=== PATIENT | female | born 1995 | race Caucasian/White ===

== ENCOUNTER → 2019-11-01 | Outpatient (CLI) | payer OTHER ==
[2019-11-01 14:25] LABS: Albumin 4.3 g/dL (3.5-5.0); Bilirubin,Unconjugated 0.7 mg/dL (0.0-1.1); Total Bilirubin 0.7 mg/dL (0.2-1.3); Total Protein 7.6 g/dL (6.3-8.2)
[2019-11-01 14:41] LABS: T4, Free (Free Thyroxine) 1.03 ng/dL (0.78-2.19)
--- NOTE | 2019-11-02 06:43 | MR ---
EXAMINATION TYPE: MR brain wo con DATE OF EXAM: 11/01/2019 COMPARISON: CT brain April 25, 1919. HISTORY: Migraines TECHNIQUE: Multiplanar, multisequence imaging of the brain and brainstem is performed without IV cont rast. FINDINGS: Diffusion weighted images demonstrate no evidence of a recent infarct or other diffusion abnormality. There is mild prominence of CSF over the bilateral frontal and temporal lobes. The ventricular syste m and cisternal spaces are otherwise normal in size and appearance. The brain volume is age appropri ate. There is increased T2 hyperintense signal involving the right cerebellar hemisphere greater than the periphery without significant sulcal effacement. On coronal images right cerebellar hemisphere s hows diminished size to opposite left side. Midline structures demonstrate normal morphology. The craniocervical junction appears within normal limits. Artifact distortion at level of the globes is present. Paranasal sinuses are grossly clear. T here is small caliber vertebral basilar system and anterior circulation felt present. IMPRESSION: Abnormal study. Mild bilateral frontal and temporal lobe atrophy with asymmetric atrophy and T2 hyperintense signal throughout the right cerebellar hemisphere. Small caliber anterior and pos terior circulation noted. Advise neurology referral. Consider contrast-enhanced MRI to further evalua te.
== END | disposition home or self-care (01) ==
LOC: RADMRIMAIN 13:26
PROVIDERS: ATTEND Internal Medicine
DX: G31.89 Other specified degenerative diseases of nervous system (principal); R93.0 Abnormal findings on diagnostic imaging of skull and head, not elsewhere classified; R51 Headache; E66.9 Obesity, unspecified; E78.5 Hyperlipidemia, unspecified; R53.83 Other fatigue
CPT/HCPCS: 70551; 80061; 80076; 82306; 82607; 84402; 84439; 84443; 84481; 87177; 87209

== ENCOUNTER → 2021-01-13 | Outpatient (CLI) | payer OTHER ==
[2021-01-13 14:53] VITALS: BP 134/92; PULSE 114; RESP 18; TEMP 99.4; BMI 41.9
--- NOTE | 2021-02-11 10:15 | P.HPBAR ---
Bariatric H&P - History & Physicial H&P Date: 01/13/21 History & Physicial: Visit/CC: initial visit Patient initial contact: Initial weight: Initial weight in pounds: Height: 5 ft 2.5 in Initial BMI: Last weight: Current weight: 105.687 kg Current weight in pounds: 233.00 Current BMI: 41.9 [place] body weight (based on NIH guidelines): 51.029 kg Excess body weight loss: The patient is a 26 year-old F who presents for Bariatric Assessment. Patient resents today for presurgical consultation. She is interested sleeve gastric. Her BMI is 42. Past Medical History Past Medical History: CVA/TIA Additional Past Medical History / Comment(s): "mini stroke at age 4 due to fever". chronic migraines. fever at age [age] due to kidney infection. History of Any Multi-Drug Resistant Organisms: None Reported Past Surgical History: Section Additional Past Surgical History / Comment(s): csection X1 (2014). Past Anesthesia/Blood Transfusion Reactions: No Reported Reaction Additional Past Anesthesia/Blood Transfusion Reaction / Comm: No history of past anesthesia or blood transfusions. Past Psychological History: No Psychological Hx Reported Smoking Status: Never smoker Past Alcohol Use History: Rare Past Drug Use History: None Reported Surgical - Exam Vital Signs Temp Pulse Resp BP 99.4 F 114 H 18 134/92 01/13/21 14:44 01/13/21 14:44 01/13/21 14:44 01/13/21 14:44 - General well nourished, no distress - Eyes PERRL - ENT normal pinna - Neck no masses - Respiratory normal expansion - Cardiovascular Rhythm: regular - Abdomen Abdomen: soft, non tender Bariatric Assessment & Plan Plan: Morbid obesity, BMI 42. Patient has an excellent understanding sleeve gastrectomy. We will over the risks and benefits of procedure. Patient will be scheduled for EGD. She will follow-up after this is performed Bariatric Checklist Checklist: Plan: Checklist: EGD: 1. Hiatal hernia: 2. H. Pylori: HgbA1c: Vitamin D: Smoking: Primary care physician referral: Dr. Monique Psychiatry clearance: Cardiology clearance: Sleep study: Diet journal: VTE risk score: VTE risk level: Rehab needs at discharge:
== END | disposition home or self-care (01) ==
LOC: BARWHC3 14:35
PROVIDERS: ATTEND Surgery
DX: E66.01 Morbid (severe) obesity due to excess calories (principal); Z68.41 Body mass index [BMI] 40.0-44.9, adult
CPT/HCPCS: 99203

== ENCOUNTER → 2021-02-17 | Outpatient (CLI) | payer OTHER ==
[2021-02-17 15:32] VITALS: BP 133/89; PULSE 125; RESP 18; TEMP 98.4; BMI 41.7
[2021-02-17 15:56] LABS: HCT 45.3 % (34.0-46.0); HGB 15.1 gm/dL (11.4-16.0); MCH 28.8 pg (25.0-35.0); MCHC 33.4 g/dL (31.0-37.0); MCV 86.1 fL (80.0-100.0); Mean Platelet Volume 7.9; Platelet Count 344 k/uL (150-450); RBC 5.26 m/uL (3.80-5.40); RDW 13.6 % (11.5-15.5)
--- NOTE | 2021-02-17 16:46 | P.HPBAR ---
Bariatric H&P - History & Physicial H&P Date: 02/17/21 History & Physicial: Visit/CC: follow up Patient initial contact: Initial weight: Initial weight in pounds: Height: 5 ft 2.5 in Initial BMI: Last weight: Current weight: 105.233 kg Current weight in pounds: 232.00 Current BMI: 41.7 [place] body weight (based on NIH guidelines): 51.029 kg Excess body weight loss: The patient is a 26 year-old F who presents for Bariatric Assessment. Patient presents today for presurgical consultation. She is morbidly obese. BMI is 42. She's Understanding of sleeve gastrectomy. Past Medical History Past Medical History: CVA/TIA Additional Past Medical History / Comment(s): "mini stroke at age 4 due to fever". chronic migraines. fever at age [age] due to kidney infection. History of Any Multi-Drug Resistant Organisms: None Reported Past Surgical History: Section Additional Past Surgical History / Comment(s): csection X1 (2014). Past Anesthesia/Blood Transfusion Reactions: No Reported Reaction Additional Past Anesthesia/Blood Transfusion Reaction / Comm: No history of past anesthesia or blood transfusions. Past Psychological History: No Psychological Hx Reported Smoking Status: Never smoker Past Alcohol Use History: Rare Past Drug Use History: None Reported Surgical - Exam Vital Signs Temp Pulse Resp BP 98.4 F 125 H 18 133/89 02/17/21 15:26 02/17/21 15:26 02/17/21 15:26 02/17/21 15:26 - General well developed, well nourished, no distress - Eyes PERRL - ENT normal pinna - Neck no masses - Respiratory normal expansion - Cardiovascular Rhythm: regular Results - Labs 02/17/21 15:33 Abnormal Lab Results - Last 24 Hours (Table) 02/17/21 Range/Units 15:33 WBC 12.0 H (3.8-10.6) k/uL Bariatric Assessment & Plan Plan: Mild obesity.. Patient be scheduled for EGD. She'll follow-up after this is performed. Bariatric Checklist Checklist: Plan: Checklist: EGD: 1. Hiatal hernia: 2. H. Pylori: HgbA1c: Vitamin D: Smoking: Primary care physician referral: Dr. Monique Psychiatry clearance: Cardiology clearance: Sleep study: Diet journal: VTE risk score: VTE risk level: Rehab needs at discharge:
[2021-02-18 21:26] LABS: Folate, Serum 13.7 ng/mL (4.40-31.00)
[2021-02-19 05:01] LABS: African American GFR (CKD) 143.9 (60.0-200.0); Albumin 4.4 g/dL (3.8-4.9); Albumin/Globulin Ratio 1.55 (1.60-3.17); Anion Gap 21.2 mmol/L (4.00-12.00); BUN/Creat Ratio 20.19 Ratio (12.00-20.00); Blood Urea Nitrogen 12.6 mg/dL (9.0-27.0); Calcium 9.6 mg/dL (8.7-10.3); Carbon Dioxide 16.1 mmol/L (21.6-31.8); Globulin 2.8 g/dL (1.6-3.3); Non-African American GFR(CKD) 124.2 (60.0-200.0); Potassium 4.2 mmol/L (3.5-5.5); Total Bilirubin 0.3 mg/dL (0.30-1.20); Total Protein 7.2 g/dL (6.2-8.2)
== END | disposition home or self-care (01) ==
LOC: BARWHC3 14:29
PROVIDERS: ATTEND Surgery
DX: E66.01 Morbid (severe) obesity due to excess calories (principal); Z68.41 Body mass index [BMI] 40.0-44.9, adult
CPT/HCPCS: 84425; 80053; 82607; 82746; 85027; 82306; 83036; 93005; G0463; 99211

== ENCOUNTER 2021-03-27 11:01 | Day surgery (SDC) | payer OTHER ==
[2021-03-26 11:31] VITALS: BMI 41.3
[~2021-03-27 11:01] MED LIST: LACTATED RINGERS 1,000 ML IV SCH; LIDOCAINE 1% (10MG/ML) FOR IV START INTRADERMA PRN
[2021-03-27 13:07] VITALS: RESP 16; TEMP 97.3
[2021-03-27] MEDS ORDERED: LIDOCAINE 1% (10MG/ML) FOR IV START INTRADERMA ONE (13:13)
[2021-03-27] MEDS ORDERED: PROPOFOL 10 MG/ML 20 ML VIAL IV ONE (13:18)
--- NOTE | 2021-03-27 13:23 | P.GSHP ---
History of Present Illness H&P Date: 03/27/21 Chief Complaint: GERD, morbid obesity This a 26-year-old female undergoing workup for sleeve gastrectomy. Patient's with GERD. She does today for EGD. Past Medical History Past Medical History: CVA/TIA Additional Past Medical History / Comment(s): "mini stroke at age 4 due to fever". chronic migraines. fever at age [age] due to kidney infection. History of Any Multi-Drug Resistant Organisms: MRSA Date of last positivie culture/infection: 2017 MDRO Source:: BUTTOCKS Past Surgical History: Section Additional Past Surgical History / Comment(s): c section X1 (2014). I & D BUTTOCK AREA Past Anesthesia/Blood Transfusion Reactions: No Reported Reaction Additional Past Anesthesia/Blood Transfusion Reaction / Comment(s): No history of past anesthesia or blood transfusions. Smoking Status: Never smoker - Past Family History Mother Family Medical History: No Reported History Medications and Allergies Home Medications Medication Instructions Recorded Confirmed Type Acyclovir [Zovirax] 800 mg PO DIRECTED PRN 01/13/21 03/27/21 History Ergocalciferol [Vitamin D2 (1250 1,250 mcg PO ZAVALA 01/13/21 03/27/21 History Mcg = [id number] Iu)] SUMAtriptan SUCCINATE [Imitrex] 100 mg PO DIRECTED PRN 01/13/21 03/27/21 History Allergies Allergy/AdvReac Type Severity Reaction Status Date / Time No Known Allergies Allergy Verified 03/27/21 12:51 Surgical - Exam Vital Signs Temp Pulse Resp BP Pulse Ox 97.3 F L 68 16 135/72 97 03/27/21 13:03 03/27/21 13:03 03/27/21 13:03 03/27/21 13:03 03/27/21 13:03 - General well developed, well nourished, no distress - Eyes PERRL - ENT normal pinna - Neck no masses - Respiratory normal expansion - Cardiovascular Rhythm: regular - Abdomen Abdomen: soft, non tender Assessment and Plan Assessment: GERD, morbid obesity. We'll perform EGD.
--- NOTE | 2021-03-27 13:32 | P.OP ---
Date of Procedure: 03/27/21 Preoperative Diagnosis: GERD Morbid obesity Postoperative Diagnosis: Antral gastritis Morbid obesity, BMI 42 Procedure(s) Performed: EGD Anesthesia: MAC Surgeon: Mateusz Bonner Pathology: other (antrum) Condition: stable Disposition: PACU Description of Procedure: The patient's placed on the endoscopy table in the lateral position. She received IV sedation. The gastroscope placed oropharynx passed in the esophagus into the stomach. Then placed through the pylorus. The first and second portion of the duodenum appeared normal. Scope was then brought back the antrum this was minimal inflamed. A biopsies performed. Scope was then retroflexed the remainder stomach appeared normal. The GE junction was at 40 cms. The distal esophagus appeared normal. The proximal esophagus appeared normal. Scope was withdrawn for patient.
[2021-03-27 13:50] VITALS: BP 129/89; PULSE 78
== END 2021-03-27 14:10 | disposition home or self-care (01) ==
LOC: ORWHC2ENDO 11:01
PROVIDERS: ATTEND Surgery
DX: K29.50 Unspecified chronic gastritis without bleeding (principal); K21.9 Gastro-esophageal reflux disease without esophagitis; E66.01 Morbid (severe) obesity due to excess calories; Z68.41 Body mass index [BMI] 40.0-44.9, adult; Z86.73 Personal history of transient ischemic attack (TIA), and cerebral infarction without residual deficits; G43.919 Migraine, unspecified, intractable, without status migrainosus; Z86.14 Personal history of Methicillin resistant Staphylococcus aureus infection; Z98.891 History of uterine scar from previous surgery
CPT/HCPCS: 81025; 43239; J2704; 88305; 88342

== ENCOUNTER → 2021-06-06 | Outpatient (CLI) | payer OTHER ==
[2021-06-06 11:28] VITALS: BP 132/85; PULSE 76; TEMP 98.2; BMI 40.6
== END | disposition home or self-care (01) ==
LOC: BARWHC3 08:58
PROVIDERS: ATTEND Surgery Plastic and Reconstructive Surgery
DX: E66.01 Morbid (severe) obesity due to excess calories (principal); Z68.41 Body mass index [BMI] 40.0-44.9, adult
CPT/HCPCS: 99211

== ENCOUNTER → 2021-06-06 | Outpatient (CLI) | payer OTHER ==
--- NOTE | 2021-06-06 12:23 | XR ---
EXAMINATION TYPE: XR chest 1V DATE OF EXAM: 06/06/2021 COMPARISON: NONE HISTORY: Sleep apnea TECHNIQUE: Single frontal view of the chest is obtained. FINDINGS: There is no focal air space opacity, pleural effusion, or pneumothorax seen. The cardiac silhouette size is within normal limits. The osseous structures are intact. IMPRESSION: No acute process.
== END | disposition home or self-care (01) ==
LOC: RADXRMAIN 10:03
PROVIDERS: ATTEND Surgery Plastic and Reconstructive Surgery
DX: G47.33 Obstructive sleep apnea (adult) (pediatric) (principal); B96.1 Klebsiella pneumoniae [K. pneumoniae] as the cause of diseases classified elsewhere
CPT/HCPCS: 71045; 83013

== ENCOUNTER → 2021-06-16 | Outpatient (CLI) | payer OTHER ==
[2021-06-16 12:10] VITALS: BMI 41.5
== END | disposition home or self-care (01) ==
LOC: BARWHC3 09:03
PROVIDERS: ATTEND Surgery Plastic and Reconstructive Surgery
DX: E66.01 Morbid (severe) obesity due to excess calories (principal); Z68.43 Body mass index [BMI] 50.0-59.9, adult
CPT/HCPCS: 97804

== ENCOUNTER → 2021-07-08 | Outpatient (CLI) | payer OTHER ==
[2021-07-10 11:15] LABS: Anabasine Urine <2.0 ng/mL (<2.0)
== END | disposition home or self-care (01) ==
LOC: LABWHC1 12:31
PROVIDERS: ATTEND Surgery
DX: Z71.51 Drug abuse counseling and surveillance of drug abuser (principal)
CPT/HCPCS: 80323

== ENCOUNTER → 2021-08-25 | Outpatient (CLI) | payer OTHER ==
[2021-08-25 14:21] VITALS: BP 154/97; PULSE 59; RESP 16; TEMP 98.2; BMI 42.0
--- NOTE | 2021-11-21 10:58 | P.HPBAR ---
Bariatric H&P - History & Physicial H&P Date: 08/25/21 History & Physicial: Visit/CC: pre-surgical Patient initial contact: Initial weight: Initial weight in pounds: Height: 5 ft 2.5 in Initial BMI: Last weight: Current weight: 105.959 kg Current weight in pounds: 233.60 Current BMI: 42.0 [place] body weight (based on NIH guidelines): 51.029 kg Excess body weight loss: The patient is a 26 year-old F who presents for Bariatric Assessment. Patient presents today for presurgical consultation. She's had she gained 10 pounds since her previous visit. She's bloated.. Her BMI is 42. Past Medical History Past Medical History: CVA/TIA Additional Past Medical History / Comment(s): "mini stroke at age 4 due to fever". chronic migraines. fever at age [age] due to kidney infection. History of Any Multi-Drug Resistant Organisms: MRSA Year Discovered:: 2018 MDRO Source:: BUTTOCKS Past Surgical History: Section Additional Past Surgical History / Comment(s): c section X1 (2014). I & D BUTTOCK AREA Past Anesthesia/Blood Transfusion Reactions: No Reported Reaction Additional Past Anesthesia/Blood Transfusion Reaction / Comm: No history of past anesthesia or blood transfusions. Past Psychological History: No Psychological Hx Reported Smoking Status: Never smoker Past Alcohol Use History: Rare Past Drug Use History: None Reported - Past Family History Mother Family Medical History: No Reported History Surgical - Exam Vital Signs Temp Pulse Resp BP 98.2 F 59 L 16 154/97 08/25/21 14:16 08/25/21 14:16 08/25/21 14:16 08/25/21 14:16 - General well developed, well nourished, no distress - Eyes PERRL - ENT normal pinna - Neck no masses - Respiratory normal expansion - Cardiovascular Rhythm: regular - Abdomen Abdomen: soft, non tender Bariatric Assessment & Plan Plan: Morbid obesity, BMI 42. Patient was scheduled for sleeve gastrectomy once her insurance authorization requirements have been met. Bariatric Checklist Checklist: Plan: Checklist: EGD: 1. Hiatal hernia: 2. H. Pylori: HgbA1c: Vitamin D: Smoking: Primary care physician referral: Dr. Monique Psychiatry clearance: Cardiology clearance: Sleep study: Diet journal: VTE risk score: VTE risk level: Rehab needs at discharge:
== END | disposition home or self-care (01) ==
LOC: BARWHC3 14:05
PROVIDERS: ATTEND Surgery
DX: E66.01 Morbid (severe) obesity due to excess calories (principal); Z68.41 Body mass index [BMI] 40.0-44.9, adult
CPT/HCPCS: 99211

== ENCOUNTER → 2021-08-25 | Outpatient (CLI) | payer OTHER ==
[2021-08-25 22:40] LABS: Basophils # (A) 0.04 X 10*3/uL (0.00-0.10); Basophils % (A) 0.3 %; Eosinophils # (A) 0.16 X 10*3/uL (0.04-0.35); Eosinophils % (A) 1.2 %; HCT 44.4 % (37.2-46.3); HGB 14.5 g/dL (12.0-15.0); Immature Grans, Automated 0.4 %; Lymphocytes # (A) 3.36 X 10*3/uL (0.90-5.00); Lymphocytes % (A) 24.7 %; MCH 28.2 pg (27.0-32.0); MCHC 32.7 g/dL (32.0-37.0); MCV 86.4 fL (80.0-97.0); Mean Platelet Volume 11.3 fL (9.5-12.2); Monocytes % (A) 6.6 %; NRBC Per 100 WBC 0 /100 WBCS (0.0-0.0); Neutrophils # (A) 9.08 X 10*3/uL (1.80-7.70); Neutrophils % (A) 66.8 %; Platelet Count 357 X 10*3/uL (140-440); RBC 5.14 X 10*6/uL (4.10-5.20); RDW 13.5 % (11.5-14.5); WBC 13.59 X 10*3/uL (4.50-10.00)
[2021-08-25 23:27] LABS: African American GFR (CKD) 117.9 (60.0-200.0); Albumin 4.3 g/dL (3.8-4.9); Albumin/Globulin Ratio 1.54 (1.60-3.17); Anion Gap 13.8 mmol/L (10.00-18.00); BUN/Creat Ratio 16.75 Ratio (12.00-20.00); Blood Urea Nitrogen 13.4 mg/dL (9.0-27.0); Calcium 10.1 mg/dL (8.7-10.3); Carbon Dioxide 23.2 mmol/L (20.0-27.5); Globulin 2.8 g/dL (1.6-3.3); Non-African American GFR(CKD) 101.8 (60.0-200.0); Potassium 4.2 mmol/L (3.5-5.5); Total Bilirubin 0.3 mg/dL (0.30-1.20); Total Protein 7.1 g/dL (6.2-8.2)
== END | disposition home or self-care (01) ==
LOC: LABPAT 15:06
PROVIDERS: ATTEND Surgery
DX: Z01.812 Encounter for preprocedural laboratory examination (principal)
CPT/HCPCS: 36415; 80053; 85025

== ENCOUNTER 2021-09-09 07:40 | Inpatient (IN) | payer OTHER ==
[2021-09-05 14:44] VITALS: BMI 41.3
[~2021-09-09 07:40] MED LIST changes: +DEXAMETHASONE SOD PHOSPHATE 4 MG/ML 1 ML VIAL IV ONE; +ENOXAPARIN 40 MG/0.4 ML SYRINGE SQ PRN; +HYDROmorphone 0.5 MG/0.5 ML SYRINGE IVP PRN; -LACTATED RINGERS 1,000 ML IV SCH; +ONDANSETRON 4 MG/2 ML VIAL IVP ONE; +SCOPOLAMINE 1 MG/72 HR PATCH TRANSDERM ONE
[2021-09-09] MEDS: LACTATED RINGERS 1,000 ML IV SCH (10:45)
[2021-09-09] MEDS ORDERED: BUPIVACAIN-EPI 0.25%-1:200,000 30 ML VIAL SQ ONE (11:13)
--- NOTE | 2021-09-09 11:17 | P.GSHP ---
History of Present Illness H&P Date: 09/09/21 Chief Complaint: Morbid obesity, BMI 40 This is a [age] female who presents today for laparoscopic sleeve gastric. Patient has had lifetime problems obesity. Patient has elected to undergo laparoscopic sleeve gastric. Patient was in the risk and benefits of the procedure. She is aware of gastric staple line disruption, bleeding and scarring. And perforation. Past Medical History Past Medical History: CVA/TIA, GERD/Reflux Additional Past Medical History / Comment(s): "Mini stroke at age 4 due to fever from kidney infection". Chronic migraines. Hx HPylori with Acid Relux, since resolved. History of Any Multi-Drug Resistant Organisms: MRSA Date of last positivie culture/infection: 2017 MDRO Source:: BUTTOCKS Past Surgical History: Section Additional Past Surgical History / Comment(s): Section X1 (2014), I&D DUE TO MRSA - BUTTOCK AREA, EGD. Past Anesthesia/Blood Transfusion Reactions: No Reported Reaction Additional Past Anesthesia/Blood Transfusion Reaction / Comment(s): No blood transfusions. Past Psychological History: No Psychological Hx Reported Smoking Status: Never smoker Past Alcohol Use History: Rare Past Drug Use History: None Reported - Past Family History Mother Family Medical History: No Reported History Medications and Allergies Home Medications Medication Instructions Recorded Confirmed Type SUMAtriptan SUCCINATE [Imitrex] 100 mg PO BID PRN 09/09/21 09/09/21 History Allergies Allergy/AdvReac Type Severity Reaction Status Date / Time No Known Allergies Allergy Verified 09/09/21 10:31 Surgical - Exam Vital Signs Temp Pulse Resp BP Pulse Ox 97.6 F 101 H 16 157/86 98 09/09/21 10:33 09/09/21 10:33 09/09/21 10:33 09/09/21 10:33 09/09/21 10:33 - General well developed, well nourished, no distress - Eyes PERRL - ENT normal pinna - Neck no masses - Respiratory normal expansion - Cardiovascular Rhythm: regular - Abdomen Abdomen: soft, non tender Assessment and Plan Assessment: Morbid obesity. We'll perform laparoscopic sleeve gastrectomy.
[2021-09-09] MEDS ORDERED: MIDAZOLAM 2 MG/2 ML VIAL IVP ONE (11:24)
[2021-09-09] MEDS ORDERED: LACTATED RINGERS 1,000 ML IV ONE (12:25)
[2021-09-09] MEDS ORDERED: HYOSCYAMINE ORAL DROPS 1.875 MG/15 ML BOTTLE PO PRN (12:30)
[2021-09-09] MEDS ORDERED: diphenhydrAMINE 50 MG/ML 1 ML VIAL IVP PRN (12:30)
[2021-09-09] MEDS ORDERED: NALOXONE 0.4 MG/ML 1 ML VIAL IV PRN (12:30)
[2021-09-09] MEDS ORDERED: ONDANSETRON 4 MG/2 ML VIAL IVP PRN (12:30)
[2021-09-09] MEDS ORDERED: SIMETHICONE 40 MG/0.6 ML DROPS 2,000 MG/30 ML BOTTLE PO PRN (12:30)
[2021-09-09] MEDS ORDERED: HYDROcodone/APAP 15 ML SOLUTION PO PRN (12:30)
[2021-09-09] MEDS ORDERED: HYDROmorphone 1 MG/ML 1 ML SYRINGE IVP PRN (12:30)
--- NOTE | 2021-09-09 12:30 | P.OP ---
Date of Procedure: 09/09/21 Preoperative Diagnosis: Morbid obesity, BMI 40 Postoperative Diagnosis: Morbid obesity, BMI 40 Procedure(s) Performed: Laparoscopic sleeve gastrectomy Anesthesia: HAIDER Surgeon: Mateusz Bonner Estimated Blood Loss (ml): 5 Pathology: other (Stomach) Condition: stable Disposition: PACU Description of Procedure: The patient was placed on the operating room table in the supine position. She received general anesthesia and then was placed in dorsal lithotomy position. Her abdomen was prepped and draped in sterile fashion. The skin incision sites were anesthetized 1% local Xylocaine. And then the skin was incised with an 11 blade in the left lateral position. Using a blade less trocar under direct visualization the peritoneal cavity was entered. The abdomen was insufflated and then a 5 mm laparoscope was placed into the peritoneal cavity. A 5 mm trocar was placed in the right epigastric, and right lateral position. A 15 mm trocar was placed in the supra-umbilical position and another 5 mm trocar was placed in the left lateral position. The left lateral lobe of the liver was retracted. The stomach was visualized. The greater curvature of the stomach was then dissected using the Harmonic scissors. The dissection occurred approximately 5 cm from the pylorus to the level of the left kristie. There was no hiatal hernia seen. At this point a 40-Namibian bougie dilator was placed the oropharynx and passed into the esophagus and into the stomach by the RED LEAD BURNER. The sleeve gastrectomy was performed by using the powered echelon stapler with a seam guard buttress material. Sequential firings of the stapler were performed. The gastric remnant was then brought out through the 15 mm trocar site. The dilator was withdrawn. And a orogastric tube was replaced into the stomach. The stomach was insufflated with 200 mL of methylene blue normal saline. There was no evidence of extravasation. The abdomen was irrigated there is no bleeding seen. The [place]-Bernard device was used to close the 15 mm trocar with 0 Vicryl. Skin was closed with interrupted 3-0 Monocryl sutures once the trochars withdrawn. Dermabond dressing was applied. Patient was sent to recovery in stable condition.
[2021-09-09] MEDS ORDERED: SUMAtriptan succinate 50 MG TAB PO PRN (12:48)
[2021-09-09] MEDS ORDERED: KETOROLAC 15 MG/ML 1 ML VIAL IVP ONE (13:00)
[2021-09-09] MEDS ORDERED: HYDROmorphone 0.5 MG/0.5 ML SYRINGE IVP ONE ×3 (13:05→14:25)
[2021-09-09] MEDS ORDERED: ONDANSETRON 4 MG/2 ML VIAL IVP ONE (14:30)
[2021-09-09] MEDS ORDERED: SIMETHICONE 40 MG/0.6 ML DROPS 2,000 MG/30 ML BOTTLE PO ONE (14:31)
[2021-09-09] MEDS ORDERED: HYDROmorphone 0.5 MG/0.5 ML SYRINGE SQ ONE (15:10)
[2021-09-09] MEDS ORDERED: SODIUM CHLORIDE 0.9% 1,000 ML IV ONE (15:34)
[2021-09-09] MEDS: KETOROLAC 15 MG/ML 1 ML VIAL IVP SCH ×2 (15:57→22:35)
[2021-09-09] MEDS: 0.9% NACL WITH KCL 20 MEQ/L 1,000 ML IV SCH ×2 (15:57→22:31)
[2021-09-09] MEDS: ALBUTEROL NEBULIZED 2.5 MG/3 ML INHALATION SCH ×2 (15:58→20:29)
[2021-09-10] MEDS: KETOROLAC 15 MG/ML 1 ML VIAL IVP SCH ×2 (04:06→10:44)
[2021-09-10] MEDS: 0.9% NACL WITH KCL 20 MEQ/L 1,000 ML IV SCH (04:07)
[2021-09-10] MEDS: LACTATED RINGERS 1,000 ML IV SCH (06:50)
[2021-09-10] MEDS ORDERED: 1: THIAMINE 100 MG, FOLIC ACID 1 MG in 0.9% NACL WITH KCL 20 MEQ/L 1,000 ML 2: 0.9% NAC IVPB SCH (08:00)
--- NOTE | 2021-09-10 08:07 | FL ---
EXAMINATION TYPE: FL UGI DATE OF EXAM: 09/10/2021 LIMITED UGI: CLINICAL HISTORY: Morbid Obesity, gastric sleeve surgery yesterday. TECHNIQUE: Limited esophagram is performed utilizing 50 oz of Isovue-370. A total of 11 seconds of f luoroscopic time was utilized during procedure and 16 images obtained. COMPARISON: None. FINDINGS: The patient swallowed contrast without difficulty or delay. Esophageal peristalsis and mo tility are within normal limits. There is good flow of contrast along the diaphragmatic hiatus into proximal stomach and subsequent flow through proximal anastomosis into gastric sleeve. There is good flow from distal sleeve and anastomosis into pylorus and duodenal sweep. Patient remains asymptomatic . There is no evidence of contrast extravasation to suggest leak. IMPRESSION: No evidence of leak or significant obstruction status post recent gastric sleeve surgery.
[2021-09-10] MEDS: ALBUTEROL NEBULIZED 2.5 MG/3 ML INHALATION SCH ×2 (08:26→11:54)
[2021-09-10] MEDS ORDERED: ENOXAPARIN 40 MG/0.4 ML SYRINGE SQ SCH (09:00)
[2021-09-10] MEDS ORDERED: PANTOPRAZOLE 40 MG/10 ML VIAL IV SCH (09:00)
[2021-09-10 10:53] LABS: Basophils # (A) 0.02 X 10*3/uL (0.00-0.10); Basophils % (A) 0.2 %; Eosinophils # (A) 0.02 X 10*3/uL (0.04-0.35); Eosinophils % (A) 0.2 %; HCT 38.4 % (37.2-46.3); HGB 12.5 g/dL (12.0-15.0); Immature Grans, Automated 0.1 %; Lymphocytes # (A) 2.07 X 10*3/uL (0.90-5.00); Lymphocytes % (A) 25.2 %; MCH 28.3 pg (27.0-32.0); MCHC 32.6 g/dL (32.0-37.0); MCV 87.1 fL (80.0-97.0); Mean Platelet Volume 11.3 fL (9.5-12.2); Monocytes # (A) 0.76 X 10*3/uL (0.20-1.00); Monocytes % (A) 9.2 %; NRBC Per 100 WBC 0 /100 WBCS (0.0-0.0); Neutrophils # (A) 5.34 X 10*3/uL (1.80-7.70); Neutrophils % (A) 65.1 %; Platelet Count 248 X 10*3/uL (140-440); RBC 4.41 X 10*6/uL (4.10-5.20); RDW 13.4 % (11.5-14.5); WBC 8.22 X 10*3/uL (4.50-10.00)
--- NOTE | 2021-09-10 11:27 | P.CONS ---
History of Present Illness - Reason for Consult Consult date: 09/10/21 Status post sleeve gastrectomy, medical management - History of Present Illness This is a very pleasant 26-year-old female who was recently admitted under surgical services and underwent laparoscopic sleeve gastrectomy with Dr. Bonner and is postop day #1. Patient does have a past medical history of morbid obesity, CVA/TIA at age 4 due to a fever from a kidney infection reportedly by patient, gastroesophageal reflux disease, and chronic migraines. Patient takes Imitrex as needed otherwise denies any other home medications. Patient denies using tobacco, alcohol, or any illicit drug use. Patient reports to a past surgical history of a section 6 years ago and has a son. Patient is seen and evaluated in postop with an abdominal binder noted and surgical sites are dry and intact. Patient is passing gas and denies bowel movement as of yet. Patient is using incentive spirometer and getting up and wa lking multiple times. Patient had an upper GI this morning showing no evidence of leak or significant obstruction status post recent gastric sleeve with good flow from the distal sleeve and anastomosis into the pylorus and duodenal sweep and patient remained asymptomatic. Patient was maintained on ice chips and will be slowly advanced per surgical recommendations. Review Of Systems: Constitutional: No fever, no chills, no night sweats. No weight change. No weakness, fatigue or lethargy. No daytime sleepiness. EENT: No headache. No blurred vision or double vision, no loss of vision. No loss of Hearing, no ringing in the ears, no dizziness. No nasal drainage or congestion. No epistaxis. No sore throat. Lungs: No shortness of breath, cough, no sputum production. No wheezing. Cardiovascular: No chest pain, no lower extremity edema. No palpitations. No paroxysmal nocturnal dyspnea. No orthopnea. No lightheadedness or dizziness. No syncopal episodes. Abdominal: Mild abdominal pain at the surgical sites. No nausea, vomiting. No diarrhea. Patient reports passing gas with no bowel movement as of yet. No constipation. No bloody or tarry stools.. No loss of appetite. Genitourinary: No dysuria, no increased frequency, no urgency. No urinary retention. Musculoskeletal: No myalgias. No muscle weakness, no gait dysfunction, no frequent falls. No back pain. No neck pain. Integumentary: No wounds, no lesions. No rash or pruritus. No unusual bruising. No change in hair or nails. Neurologic: No aphasia. No facial droop. No change in mentation. No head injury. No headache. No paralysis. No paresthesia. Psychiatric: No depression. No anxiety. No mood swings. Endocrine: No abnormal blood sugars. No weight change. No excessive sweating or thirst. No cold intolerance. Active Medications Hydrocodone Bitart/Acetaminophen (Hydrocodone/Apap 15 Ml Solution) 30 ml PO Q6HR PRN PRN Reason: Severe Pain Albuterol Sulfate (Albuterol Nebulized 2.5 Mg/3 Ml) 2.5 mg INHALATION RT-QID [facility] Last Admin: 09/10/21 08:26 Dose: 2.5 mg Documented by: Diphenhydramine HCl (Diphenhydramine 50 Mg/Ml 1 Ml Vial) 25 mg IVP Q6HR PRN PRN Reason: Itching Enoxaparin Sodium (Enoxaparin 40 Mg/0.4 Ml Syringe) 40 mg SQ DAILY [facility] Last Admin: 09/10/21 08:11 Dose: 40 mg Documented by: Hydromorphone HCl (Hydromorphone 1 Mg/Ml 1 Ml Syringe) 1 mg IVP Q3HR PRN PRN Reason: Pain Last Admin: 09/09/21 20:29 Dose: 1 mg Documented by: Hyoscyamine (Hyoscyamine Oral Drops 1.875 Mg/15 Ml Bottle) 0.125 mg PO Q6HR PRN PRN Reason: Esophageal Spasm Lactated Ringer's (Lactated Ringers) 1,000 mls @ 20 mls/hr IV .Q24H [facility] Last Admin: 09/10/21 06:50 Dose: Not Given Documented by: Thiamine HCl 100 mg/ Folic Acid 1 mg/ Potassium Chloride/Sodium Chloride 1,001.2 mls @ 100 mls/hr IVPB .BY DURATION [facility] Last Admin: 09/10/21 10:44 Dose: 100 mls/hr Documented by: Potassium Chloride/Sodium Chloride (Ns-Kcl 20 Meq/L Iv Solution) 1,000 mls @ 100 mls/hr IVPB .BY DURATION [facility] Ketorolac Tromethamine (Ketorolac 15 Mg/Ml 1 Ml Vial) 15 mg IVP Q6H [facility] Stop: 09/11/21 10:01 Last Admin: 09/10/21 10:44 Dose: 15 mg Documented by: Lidocaine HCl (Lidocaine 1% (10mg/Ml) For Iv Start) 0.1 ml INTRADERMA PER PROTOCOL PRN PRN Reason: IV Start Last Admin: 09/09/21 10:45 Dose: 0.1 ml Documented by: Naloxone HCl (Naloxone 0.4 Mg/Ml 1 Ml Vial) 0.2 mg IV Q2M PRN PRN Reason: Opioid Reversal Ondansetron HCl (Ondansetron 4 Mg/2 Ml Vial) 4 mg IVP Q8HR PRN PRN Reason: Nausea And Vomiting Last Admin: 09/09/21 20:40 Dose: 4 mg Documented by: Pantoprazole Sodium (Pantoprazole 40 Mg/10 Ml Vial) 40 mg IV DAILY [facility] Last Admin: 09/10/21 08:10 Dose: 40 mg Documented by: Simethicone (Simethicone 40 Mg/0.6 Ml Drops 2,000 Mg/30 Ml Bottle) 40 mg PO Q6HR PRN PRN Reason: Bloating Last Admin: 09/10/21 04:11 Dose: 40 mg Documented by: Sumatriptan Succinate (Sumatriptan Succinate 50 Mg Tab) 100 mg PO BID PRN PRN Reason: Headache Physical exam: Gen: This is a 26-year-old female who is awake and alert and oriented 3, morbidly obese, well-developed, well-nourished. HEENT: Head is atraumatic, normocephalic. Pupils equal, round. Sclerae is anicteric. NECK: Supple. No JVD. No lymphadenopathy. No thyromegaly. LUNGS: Clear to auscultation. No wheezes or rhonchi. No intercostal retractions. HEART: Regular rate and rhythm. No murmur. ABDOMEN: Soft. Mildly tender at the surgical site. Bowel sounds are present in all 4 quadrants. No masses. Laparoscopic surgical sites are dry and intact with no surrounding redness or drainage noted. Abdominal binder noted EXTREMITIES: No pedal edema. No calf tenderness. NEUROLOGICAL: Patient is awake, alert and oriented x3. Cranial nerves 2 through 12 are grossly intact. Assessment: Status post laparoscopic sleeve gastrectomy, postop day #1 Morbid obesity with a BMI of 40.0 Gastroesophageal reflux disease Chronic migraines History of a mini stroke at age 4 secondary to kidney infection Full code Plan: This is a very pleasant 26-year-old female who has had lifelong issues with morbid obesity and has elected to undergo laparoscopic sleeve gastrectomy and is postop day #1 with general surgery as admitting services. Patient was maintained on ice chips until upper GI series was done today which shows no evidence of obstruction and no evidence of leak at this time. Diet will be advanced per surgical recommendations. Patient is reporting passing gas although no bowel movement as of yet. Patient is urinating with no burning or dysuria noted. Patient with an abdominal binder noted and is using incentive spirometer at least 10 times every hour while awake. Home medications have been resumed and verified with pharmacy that her Imitrex may be crushed and she uses this as needed. Discussed with surgery about medication guidelines and restri ctions status post sleeve gastrectomy. Encourage increased ambulation and activity as tolerated. We will continue to follow during hospitalization. Thank you for this consultation. The impression and plan of care has been dictated by Olesya Mims, Nurse Practitioner as directed. Dr. Giovana MD I have performed a history and examination and MDM of this patient, discussed the same with the dictator, and agree with the dictator's assessment and plan as written ,documented as a scribe. Based on total visit time, I have performed more than 50% of the visit. Past Medical History Past Medical History: CVA/TIA, GERD/Reflux Additional Past Medical History / Comment(s): "Mini stroke at age 4 due to fever from kidney infection". Chronic migraines. Hx HPylori with Acid Relux, since resolved. History of Any Multi-Drug Resistant Organisms: MRSA Year Discovered:: 2018 MDRO Source:: BUTTOCKS Past Surgical History: Section Additional Past Surgical History / Comment(s): Section X1 (2015), I&D DUE TO MRSA - BUTTOCK AREA, EGD. Past Anesthesia/Blood Transfusion Reactions: No Reported Reaction Additional Past Anesthesia/Blood Transfusion Reaction / Comm: No blood transfusions. Past Psychological History: No Psychological Hx Reported Smoking Status: Never smoker Past Alcohol Use History: Rare Past Drug Use History: None Reported - Past Family History Mother Family Medical History: No Reported History Medications and Allergies Home Medications Medication Instructions Recorded Confirmed Type SUMAtriptan SUCCINATE [Imitrex] 100 mg PO BID PRN #60 tab 09/10/21 Rx Allergies Allergy/AdvReac Type Severity Reaction Status Date / Time No Known Allergies Allergy Verified 09/09/21 10:31 Physical Exam Vitals: Vital Signs Temp Pulse Pulse Pulse Resp BP Pulse Ox 09/10/21 08:40 65 09/10/21 08:38 18 09/10/21 08:27 60 09/10/21 08:00 97.9 F 57 L 18 128/90 100 09/10/21 02:00 98.2 F 70 17 115/67 3 L 09/09/21 19:38 98.1 F 53 L 17 118/70 97 09/09/21 16:00 98.6 F 85 19 123/84 95 09/09/21 14:20 61 16 118/66 97 09/09/21 13:50 61 16 116/69 97 09/09/21 13:20 76 17 115/66 96 09/09/21 13:05 76 16 115/72 97 09/09/21 12:50 77 16 125/48 96 09/09/21 12:36 99.0 F 82 12 118/74 97 09/09/21 10:33 97.6 F 101 H 16 157/86 98 Intake and Output 09/09/21 09/10/21 09/10/21 22:59 06:59 14:59 Intake Total 950 Balance 950 Intake: IV 950 Oral 0 Other: # Voids 1 3 Weight 102.5 kg Results CBC & Chem 7: 09/10/21 05:30
[2021-09-10 11:40] LABS: African American GFR (CKD) 138.6 (60.0-200.0); Anion Gap 12.2 mmol/L (10.00-18.00); Blood Urea Nitrogen 9.1 mg/dL (9.0-27.0); Calcium 8.3 mg/dL (8.7-10.3); Carbon Dioxide 20.8 mmol/L (20.0-27.5); Non-African American GFR(CKD) 119.6 (60.0-200.0); Phosphorus 2.8 mg/dL (2.4-5.1); Potassium 4.4 mmol/L (3.5-5.5)
--- NOTE | 2021-09-10 13:08 | P.DS ---
Providers Date of admission: 09/09/21 09:15 Expected date of discharge: 09/10/21 Attending physician: Mateusz Bonner Consults: 09/09/21 12:30 Consult Physician Routine Consulting Provider: Aviva Collado Consult Reason/Comments: Medical management Do you want consulting provider notified?: Yes Primary care physician: Kayden Carrasco Hospital Course: Discharge diagnosis 1. Morbid obesity status post laparoscopic sleeve gastrectomy Hospital course This is a 26-year-old female with a history of morbid obesity she is status post laparoscopic sleeve gastrectomy. Patient tolerated surgery well. Upper GI shows no evidence of leak or obstruction. Patient having bariatric clear liquid diet. She is having flatus. She has been up and ambulating. Denies any difficulty urinating. Her pain is controlled. She is afebrile. She is stable for discharge. Please refer to chart for any further details. Physician Finishing Area Supervisor note has been reviewed by physician. Signing provider agrees with the documented findings, assessment, and plan of care. Patient Condition at Discharge: Stable Plan - Discharge Summary Discharge Rx Participant: No New Discharge Prescriptions: New Simethicone 40 mg/0.6 ml Drops [Mylicon Drops] 40 mg PO PCHS PRN #30 ml PRN Reason: Gas Ondansetron Odt [Zofran Odt] 4 mg PO Q8HR PRN #9 tab PRN Reason: Nausea bisacodyL [Dulcolax] 5 mg PO DAILY PRN #10 tab PRN Reason: Constipation HYDROcodone/APAP 5-325MG [[place] 5-325] 1 tab PO Q6HR PRN 3 Days #12 tab PRN Reason: Pain Omeprazole [PriLOSEC] 40 mg PO DAILY #30 cap Continue SUMAtriptan SUCCINATE [Imitrex] 100 mg PO BID PRN #60 tab PRN Reason: Headache Discharge Medication List HYDROcodone/APAP 5-325MG [[place] 5-325] 1 tab PO Q6HR PRN 3 Days #12 tab 09/10/21 [Rx] Omeprazole [PriLOSEC] 40 mg PO DAILY #30 cap 09/10/21 [Rx] Ondansetron Odt [Zofran Odt] 4 mg PO Q8HR PRN #9 tab 09/10/21 [Rx] SUMAtriptan SUCCINATE [Imitrex] 100 mg PO BID PRN #60 tab 09/10/21 [Rx] Simethicone 40 mg/0.6 ml Drops [Mylicon Drops] 40 mg PO PCHS PRN #30 ml 09/10/21 [Rx] bisacodyL [Dulcolax] 5 mg PO DAILY PRN #10 tab 09/10/21 [Rx] Follow up Appointment(s)/Referral(s): Mateusz Bonner MD [STAFF PHYSICIAN] - 1 Week Activity/Diet/Wound Care/Special Instructions: No driving while taking [place] No lifting over 10 pounds You may shower. No soaking or tub baths for 2 weeks Very light activity until you are reevaluated at your follow up appointment with your surgeon No straws or carbonated beverages Discharge Disposition: HOME SELF-CARE
[2021-09-10 14:14] LABS: Magnesium 2.3 mg/dL (1.5-2.4)
[2021-09-10 15:11] VITALS: BP 136/86; PULSE 68; RESP 16; TEMP 98.3
== END 2021-09-10 16:23 | disposition home or self-care (01) | DRG 621 ==
LOC: 2ORMAIN 09:15 → 4SSUR 15:09
PROVIDERS: ADMIT Surgery; ATTEND Surgery
PROC: 0DB64Z3 Excision of Stomach, Percutaneous Endoscopic Approach, Vertical (ICD-10-PCS; principal; 2021-09-09 10:30)
DX: E66.01 Morbid (severe) obesity due to excess calories (principal); G43.909 Migraine, unspecified, not intractable, without status migrainosus; K21.9 Gastro-esophageal reflux disease without esophagitis; Z68.41 Body mass index [BMI] 40.0-44.9, adult; Z86.73 Personal history of transient ischemic attack (TIA), and cerebral infarction without residual deficits; Z98.891 History of uterine scar from previous surgery; Z86.14 Personal history of Methicillin resistant Staphylococcus aureus infection; Z87.19 Personal history of other diseases of the digestive system
CPT/HCPCS: 74240; 80051; 81025; 82310; 82565; 83735; 84100; 84520; 84703; 85025; 88307; 94640

== ENCOUNTER → 2021-09-12 | Outpatient (CLI) | payer OTHER ==
[2021-09-12] MEDS: SODIUM CHLORIDE 0.9% 1,000 ML IV SCH ×2 (11:00→12:03)
[2021-09-12 11:10] VITALS: BP 133/93; PULSE 76; RESP 16; TEMP 98
== END | disposition home or self-care (01) ==
LOC: BARWHC3 10:20
PROVIDERS: ATTEND Surgery
DX: E86.0 Dehydration (principal)
CPT/HCPCS: 96360; 96361; G0463; 99211

== ENCOUNTER → 2021-09-15 | Outpatient (CLI) | payer OTHER ==
[2021-09-15 13:19] VITALS: BP 99/67; PULSE 123; TEMP 98.8; BMI 38.7
--- NOTE | 2021-09-15 13:39 | P.HPBAR ---
Bariatric H&P - History & Physicial H&P Date: 09/15/21 History & Physicial: Visit/CC: sleeve f/u Patient initial contact: Initial weight: Initial weight in pounds: Height: 5 ft 2.5 in Initial BMI: Last weight: Current weight: 97.522 kg Current weight in pounds: 215.00 Current BMI: 38.7 [place] body weight (based on NIH guidelines): 51.029 kg Excess body weight loss: The patient is a 26 year-old F who presents for Bariatric Assessment.patient presents today for postoperative follow-up. She feels well. She denies any significant pain. The patient has had some limited oral intake. She has received some IV hydration therapy. Past Medical History Past Medical History: CVA/TIA, GERD/Reflux Additional Past Medical History / Comment(s): "Mini stroke at age 4 due to fever from kidney infection". Chronic migraines. Hx HPylori with Acid Relux, since resolved. History of Any Multi-Drug Resistant Organisms: MRSA Year Discovered:: 2018 MDRO Source:: BUTTOCKS Past Surgical History: Section Additional Past Surgical History / Comment(s): Section X1 (2014), I&D DUE TO MRSA - BUTTOCK AREA, EGD. Past Anesthesia/Blood Transfusion Reactions: No Reported Reaction Additional Past Anesthesia/Blood Transfusion Reaction / Comm: No blood transfusions. Past Psychological History: No Psychological Hx Reported Smoking Status: Never smoker Past Alcohol Use History: Rare Past Drug Use History: None Reported - Past Family History Mother Family Medical History: No Reported History Surgical - Exam Vital Signs Temp Pulse BP 98.8 F 123 H 99/67 09/15/21 13:16 09/15/21 13:16 09/15/21 13:16 - General well developed, well nourished, no distress - Eyes PERRL - ENT normal pinna - Neck no masses - Respiratory normal expansion - Cardiovascular Rhythm: regular - Abdomen Abdomen: soft, non tender Bariatric Assessment & Plan Plan: status post sleeve gastrectomy. Patient will continue receive IV hydration therapy. She'll follow-up in one week. Bariatric Checklist Checklist: Plan: Checklist: EGD: 1. Hiatal hernia: 2. H. Pylori: HgbA1c: Vitamin D: Smoking: Primary care physician referral: Dr. Monique Psychiatry clearance: Cardiology clearance: Sleep study: Diet journal: VTE risk score: VTE risk level: Rehab needs at discharge:
== END | disposition home or self-care (01) ==
LOC: BARWHC3 13:05
PROVIDERS: ATTEND Surgery
DX: Z48.815 Encounter for surgical aftercare following surgery on the digestive system (principal)
CPT/HCPCS: 97802; G0463; 99211

== ENCOUNTER → 2021-09-16 | Outpatient (CLI) | payer OTHER ==
[2021-09-16 11:39] VITALS: BP 139/88; PULSE 94; RESP 16; TEMP 97.5
[2021-09-16] MEDS: SODIUM CHLORIDE 0.9% 1,000 ML IV SCH ×2 (11:41→12:42)
== END | disposition home or self-care (01) ==
LOC: PROCWHC3 11:31
PROVIDERS: ATTEND Surgery
DX: E86.0 Dehydration (principal)
CPT/HCPCS: 96360; 96361

== ENCOUNTER → 2021-09-29 | Outpatient (CLI) | payer OTHER ==
[2021-09-29 13:55] VITALS: BP 129/87; PULSE 83; TEMP 97.8; BMI 38.5
--- NOTE | 2021-09-29 14:54 | P.HPBAR ---
Bariatric H&P - History & Physicial H&P Date: 09/29/21 History & Physicial: Visit/CC: sleeve 2 week f/u Patient initial contact: Initial weight: Initial weight in pounds: Height: 5 ft 2.5 in Initial BMI: Last weight: Current weight: 97.069 kg Current weight in pounds: 214.00 Current BMI: 38.5 [place] body weight (based on NIH guidelines): 51.029 kg Excess body weight loss: The patient is a 26 year-old F who presents for Bariatric Assessment. Patient presents today for LAP-BAND follow-up. She's had good weight loss. She's had some mild GERD. Past Medical History Past Medical History: CVA/TIA, GERD/Reflux Additional Past Medical History / Comment(s): "Mini stroke at age 4 due to fever from kidney infection". Chronic migraines. Hx HPylori with Acid Relux, since resolved. History of Any Multi-Drug Resistant Organisms: MRSA Year Discovered:: 2018 MDRO Source:: BUTTOCKS Past Surgical History: Section Additional Past Surgical History / Comment(s): Section X1 (2014), I&D DUE TO MRSA - BUTTOCK AREA, EGD. Past Anesthesia/Blood Transfusion Reactions: No Reported Reaction Additional Past Anesthesia/Blood Transfusion Reaction / Comm: No blood transfusions. Past Psychological History: No Psychological Hx Reported Smoking Status: Never smoker Past Alcohol Use History: Rare Past Drug Use History: None Reported - Past Family History Mother Family Medical History: No Reported History Surgical - Exam Vital Signs Temp Pulse BP 97.8 F 83 129/87 09/29/21 13:53 09/29/21 13:53 09/29/21 13:53 - General well developed, well nourished, no distress - Eyes PERRL - ENT normal pinna - Neck no masses - Respiratory normal expansion - Cardiovascular Rhythm: regular - Abdomen Abdomen: soft, non tender Bariatric Assessment & Plan Plan: Hospital sleeve gastrectomy. Patient's GERD is minimal. She'll be observed. She'll follow-up in 4 weeks. Bariatric Checklist Checklist: Plan: Checklist: EGD: 1. Hiatal hernia: 2. H. Pylori: HgbA1c: Vitamin D: Smoking: Primary care physician referral: DR. PORTILLO Psychiatry clearance: Cardiology clearance: Sleep study: Diet journal: VTE risk score: VTE risk level: Rehab needs at discharge:
[2021-09-29 22:53] LABS: HCT 44.1 % (37.2-46.3); HGB 14.5 g/dL (12.0-15.0); MCH 28.9 pg (27.0-32.0); MCHC 32.9 g/dL (32.0-37.0); MCV 87.8 fL (80.0-97.0); Mean Platelet Volume 11.8 fL (9.5-12.2); NRBC Per 100 WBC 0 /100 WBCS (0.0-0.0); Platelet Count 280 X 10*3/uL (140-440); RBC 5.02 X 10*6/uL (4.10-5.20); RDW 13.8 % (11.5-14.5); WBC 9.17 X 10*3/uL (4.50-10.00)
[2021-09-29 23:19] LABS: % Iron Saturation 10.78 (12.00-45.00); African American GFR (CKD) 140.3 (60.0-200.0); Albumin 4.3 g/dL (3.8-4.9); Albumin/Globulin Ratio 1.64 (1.60-3.17); Anion Gap 14.5 mmol/L (10.00-18.00); BUN/Creat Ratio 22.4 Ratio (12.00-20.00); Blood Urea Nitrogen 15.1 mg/dL (9.0-27.0); Calcium 9.5 mg/dL (8.7-10.3); Carbon Dioxide 21.1 mmol/L (20.0-27.5); Ferritin 29.3 ng/mL (10.0-291.0); Globulin 2.6 g/dL (1.6-3.3); Magnesium 1.9 mg/dL (1.5-2.4); Non-African American GFR(CKD) 121.1 (60.0-200.0); Potassium 4.3 mmol/L (3.5-5.5); Total Bilirubin 0.4 mg/dL (0.30-1.20); Total Protein 6.9 g/dL (6.2-8.2)
[2021-09-30 11:44] LABS: Zinc, Serum 73 ug/dL (60-130)
[2021-10-01 09:50] LABS: Vitamin A 40 ug/dL (38-106)
== END | disposition home or self-care (01) ==
LOC: BARWHC3 13:41
PROVIDERS: ATTEND Surgery
DX: E66.01 Morbid (severe) obesity due to excess calories (principal); D50.8 Other iron deficiency anemias; E44.0 Moderate protein-calorie malnutrition; E55.9 Vitamin D deficiency, unspecified; T56.894A Toxic effect of other metals, undetermined, initial encounter
CPT/HCPCS: 84255; 84425; 80053; 82607; 82728; 82746; 83540; 83550; 83735; 84443; 84590; 84630; 85027; 82306; G0463; 99211

== ENCOUNTER → 2021-11-03 | Outpatient (CLI) | payer OTHER ==
[2021-11-03 13:19] VITALS: BP 138/90; PULSE 78; RESP 12; TEMP 98.5; BMI 36.7
--- NOTE | 2021-11-03 15:00 | P.HPBAR ---
Bariatric H&P - History & Physicial H&P Date: 11/03/21 History & Physicial: Visit/CC: sleeve follow up Patient initial contact: Initial weight: Initial weight in pounds: Height: 5 ft 2 in Initial BMI: Last weight: Current weight: 91.172 kg Current weight in pounds: 201.00 Current BMI: 36.7 [place] body weight (based on NIH guidelines): 49.895 kg Excess body weight loss: The patient is a 26 year-old F who presents for Bariatric Assessment. Patient safe for sleeve gastric fall. She's had some mild GERD. Her current weight is 201 pounds. Her last weight was 214 pounds. Her obesity is improving. Past Medical History Past Medical History: CVA/TIA, GERD/Reflux Additional Past Medical History / Comment(s): "Mini stroke at age 4 due to fever from kidney infection". Chronic migraines. Hx HPylori with Acid Relux, since resolved. History of Any Multi-Drug Resistant Organisms: MRSA Year Discovered:: 2018 MDRO Source:: BUTTOCKS Past Surgical History: Section Additional Past Surgical History / Comment(s): Section X1 (2014), I&D DUE TO MRSA - BUTTOCK AREA, EGD. Past Anesthesia/Blood Transfusion Reactions: No Reported Reaction Additional Past Anesthesia/Blood Transfusion Reaction / Comm: No blood transfusions. Past Psychological History: No Psychological Hx Reported Smoking Status: Never smoker Past Alcohol Use History: Rare Past Drug Use History: None Reported - Past Family History Mother Family Medical History: No Reported History Surgical - Exam Vital Signs Temp Pulse Resp BP 98.5 F 78 12 138/90 11/03/21 13:14 11/03/21 13:14 11/03/21 13:14 11/03/21 13:14 - General well developed, well nourished, no distress - Eyes PERRL - ENT normal pinna - Neck no masses - Respiratory normal expansion - Cardiovascular Rhythm: regular - Abdomen Abdomen: soft, non tender Bariatric Assessment & Plan Plan: Improving morbid obesity. Patient's GERD is minimal and will be observed. She'll follow-up in 4 weeks. Bariatric Checklist Checklist: Plan: Checklist: EGD: 1. Hiatal hernia: 2. H. Pylori: HgbA1c: Vitamin D: Smoking: Primary care physician referral: DR. PORTILLO Psychiatry clearance: Cardiology clearance: Sleep study: Diet journal: VTE risk score: VTE risk level: Rehab needs at discharge:
== END | disposition home or self-care (01) ==
LOC: BARWHC3 12:53
PROVIDERS: ATTEND Surgery
DX: E66.01 Morbid (severe) obesity due to excess calories (principal); Z71.3 Dietary counseling and surveillance
CPT/HCPCS: 97803; G0463; 99211

== ENCOUNTER → 2021-12-01 | Outpatient (CLI) | payer OTHER ==
[2021-12-01 14:04] VITALS: BP 134/92; PULSE 69; TEMP 98.2; BMI 34.3
--- NOTE | 2022-02-03 12:00 | P.HPBAR ---
Bariatric H&P - History & Physicial H&P Date: 12/01/21 History & Physicial: Visit/CC: Patient initial contact: Initial weight: Initial weight in pounds: Height: 5 ft 2.5 in Initial BMI: Last weight: Current weight: 86.636 kg Current weight in pounds: 191.00 Current BMI: 34.3 [place] body weight (based on NIH guidelines): 51.029 kg Excess body weight loss: The patient is a 27 year-old F who presents for Bariatric Assessment. Patient resents today for bariatric follow-up. Patient has lost 10 pounds her last visit. Her GERD is minimal. Past Medical History Past Medical History: CVA/TIA, GERD/Reflux Additional Past Medical History / Comment(s): "Mini stroke at age 4 due to fever from kidney infection". Chronic migraines. Hx HPylori with Acid Relux, since resolved. History of Any Multi-Drug Resistant Organisms: MRSA Year Discovered:: 2018 MDRO Source:: BUTTOCKS Past Surgical History: Section Additional Past Surgical History / Comment(s): Section X1 (2014), I&D DUE TO MRSA - BUTTOCK AREA, EGD. Past Anesthesia/Blood Transfusion Reactions: No Reported Reaction Additional Past Anesthesia/Blood Transfusion Reaction / Comm: No blood transfusions. Past Psychological History: No Psychological Hx Reported Smoking Status: Never smoker Past Alcohol Use History: Rare Past Drug Use History: None Reported - Past Family History Mother Family Medical History: No Reported History Surgical - Exam Vital Signs Temp Pulse BP 98.2 F 69 134/92 12/01/21 14:00 12/01/21 14:00 12/01/21 14:00 - General well nourished, no distress - Eyes PERRL - ENT normal pinna - Neck no masses - Respiratory normal expansion - Cardiovascular Rhythm: regular - Abdomen Abdomen: soft, non tender Bariatric Assessment & Plan Plan: Status post sleeve history. Patient's GERD is minimal and will be observed. She has excellent weight loss. Bariatric Checklist Checklist: Plan: Checklist: EGD: 1. Hiatal hernia: 2. H. Pylori: HgbA1c: Vitamin D: Smoking: Primary care physician referral: DR. PORTILLO Psychiatry clearance: Cardiology clearance: Sleep study: Diet journal: VTE risk score: VTE risk level: Rehab needs at discharge:
== END | disposition home or self-care (01) ==
LOC: BARWHC3 12:34
PROVIDERS: ATTEND Surgery
DX: Z48.815 Encounter for surgical aftercare following surgery on the digestive system (principal); K21.9 Gastro-esophageal reflux disease without esophagitis
CPT/HCPCS: 99211

== ENCOUNTER → 2021-12-15 | Outpatient (CLI) | payer OTHER ==
[2021-12-15 17:47] LABS: Basophils # (A) 0.04 X 10*3/uL (0.00-0.10); Basophils % (A) 0.5 %; Eosinophils # (A) 0.08 X 10*3/uL (0.04-0.35); HCT 47.9 % (37.2-46.3); HGB 15.7 g/dL (12.0-15.0); Immature Grans, Automated 0.4 %; Lymphocytes # (A) 2.17 X 10*3/uL (0.90-5.00); Lymphocytes % (A) 27.5 %; MCH 28.4 pg (27.0-32.0); MCHC 32.8 g/dL (32.0-37.0); MCV 86.6 fL (80.0-97.0); Mean Platelet Volume 11.3 fL (9.5-12.2); Monocytes # (A) 0.74 X 10*3/uL (0.20-1.00); Monocytes % (A) 9.4 %; NRBC Per 100 WBC 0 /100 WBCS (0.0-0.0); Neutrophils # (A) 4.82 X 10*3/uL (1.80-7.70); Neutrophils % (A) 61.2 %; Platelet Count 261 X 10*3/uL (140-440); RBC 5.53 X 10*6/uL (4.10-5.20); RDW 13.8 % (11.5-14.5); WBC 7.88 X 10*3/uL (4.50-10.00)
[2021-12-15 18:09] LABS: % Iron Saturation 21.7 (12.00-45.00); African American GFR (CKD) 139.1 (60.0-200.0); Albumin 4.2 g/dL (3.8-4.9); Albumin/Globulin Ratio 1.45 (1.60-3.17); Anion Gap 11.3 mmol/L (10.00-18.00); BUN/Creat Ratio 13.43 Ratio (12.00-20.00); Blood Urea Nitrogen 9.3 mg/dL (9.0-27.0); Calcium 9.4 mg/dL (8.7-10.3); Carbon Dioxide 22.9 mmol/L (20.0-27.5); Ferritin 46.3 ng/mL (10.0-291.0); Globulin 2.9 g/dL (1.6-3.3); Potassium 4.5 mmol/L (3.5-5.5); Total Bilirubin 0.3 mg/dL (0.30-1.20); Total Protein 7.1 g/dL (6.2-8.2)
[2021-12-16 11:43] LABS: Zinc, Serum 72 ug/dL (60-130)
[2021-12-17 09:12] LABS: Vitamin A 47 ug/dL (38-106)
[2021-12-17 09:24] LABS: Vit B1(Thiamine) 67 ug/L (38-122)
== END | disposition home or self-care (01) ==
LOC: LABWHC1 13:55
PROVIDERS: ATTEND Surgery
DX: E66.01 Morbid (severe) obesity due to excess calories (principal); D50.8 Other iron deficiency anemias; E44.0 Moderate protein-calorie malnutrition; E55.9 Vitamin D deficiency, unspecified; T56.894A Toxic effect of other metals, undetermined, initial encounter
CPT/HCPCS: 36415; 80053; 82306; 82607; 82728; 82746; 83540; 83550; 83735; 84255; 84425; 84443; 84590; 84630; 85025

== ENCOUNTER → 2022-01-26 | Outpatient (CLI) | payer OTHER ==
[2022-01-26 14:22] VITALS: BP 122/87; PULSE 70; TEMP 98.1; BMI 32.3
--- NOTE | 2022-01-26 14:50 | P.HPBAR ---
Bariatric H&P - History & Physicial H&P Date: 01/26/22 History & Physicial: Visit/CC: sleeve f/u Patient initial contact: Initial weight: Initial weight in pounds: Height: 5 ft 2.5 in Initial BMI: Last weight: Current weight: 81.647 kg Current weight in pounds: 180.00 Current BMI: 32.3 [place] body weight (based on NIH guidelines): 51.029 kg Excess body weight loss: The patient is a 26 year-old F who presents for Bariatric Assessment. Patient presents today for bariatric follow-up. She is doing excellent from weight loss. Her current weight is 180 pounds. She previously weight 191 pounds. She has minimal GERD. Past Medical History Past Medical History: CVA/TIA, GERD/Reflux Additional Past Medical History / Comment(s): "Mini stroke at age 4 due to fever from kidney infection". Chronic migraines. Hx HPylori with Acid Relux, since resolved. History of Any Multi-Drug Resistant Organisms: MRSA Year Discovered:: 2018 MDRO Source:: BUTTOCKS Past Surgical History: Section Additional Past Surgical History / Comment(s): Section X1 (2015), I&D DUE TO MRSA - BUTTOCK AREA, EGD. Past Anesthesia/Blood Transfusion Reactions: No Reported Reaction Additional Past Anesthesia/Blood Transfusion Reaction / Comm: No blood transfusions. Past Psychological History: No Psychological Hx Reported Smoking Status: Never smoker Past Alcohol Use History: Rare Past Drug Use History: None Reported - Past Family History Mother Family Medical History: No Reported History Surgical - Exam Vital Signs Temp Pulse BP 98.1 F 70 122/87 01/26/22 14:20 01/26/22 14:20 01/26/22 14:20 - General well developed, well nourished, no distress - Eyes PERRL - ENT normal pinna - Neck no masses - Respiratory normal expansion - Cardiovascular Rhythm: regular - Abdomen Abdomen: soft, non tender Bariatric Assessment & Plan Plan: Resolving morbid obesity. Patient's GERD is minimal and will be observed. She'll follow-up in 4 weeks. Bariatric Checklist Checklist: Plan: Checklist: EGD: 1. Hiatal hernia: 2. H. Pylori: HgbA1c: Vitamin D: Smoking: Primary care physician referral: DR. PORTILLO Psychiatry clearance: Cardiology clearance: Sleep study: Diet journal: VTE risk score: VTE risk level: Rehab needs at discharge:
== END | disposition home or self-care (01) ==
LOC: BARWHC3 14:12
PROVIDERS: ATTEND Surgery
DX: E66.01 Morbid (severe) obesity due to excess calories (principal); K21.9 Gastro-esophageal reflux disease without esophagitis; Z68.31 Body mass index [BMI] 31.0-31.9, adult
CPT/HCPCS: 99211

== ENCOUNTER → 2022-02-23 | Outpatient (CLI) | payer OTHER ==
[2022-02-23 14:22] VITALS: BP 127/85; PULSE 99; TEMP 98.3; BMI 31.3
--- NOTE | 2022-02-23 14:54 | P.HPBAR ---
Bariatric H&P - History & Physicial H&P Date: 02/23/22 History & Physicial: Visit/CC: 6 month sleeve f/u Patient initial contact: Initial weight: Initial weight in pounds: Height: 5 ft 2.5 in Initial BMI: Last weight: Current weight: 78.925 kg Current weight in pounds: 174.00 Current BMI: 31.3 [place] body weight (based on NIH guidelines): 51.029 kg Excess body weight loss: The patient is a 27 year-old F who presents for Bariatric Assessment.patient presents today for sleeve gastrectomy follow-up. She has some complaints of mild GERD. She has lost 6 pounds since her last visit. Past Medical History Past Medical History: CVA/TIA, GERD/Reflux Additional Past Medical History / Comment(s): "Mini stroke at age 4 due to fever from kidney infection". Chronic migraines. Hx HPylori with Acid Relux, since resolved. History of Any Multi-Drug Resistant Organisms: MRSA Year Discovered:: 2018 MDRO Source:: BUTTOCKS Past Surgical History: Section Additional Past Surgical History / Comment(s): Section X1 (2014), I&D DUE TO MRSA - BUTTOCK AREA, EGD. Past Anesthesia/Blood Transfusion Reactions: No Reported Reaction Additional Past Anesthesia/Blood Transfusion Reaction / Comm: No blood transfusions. Past Psychological History: No Psychological Hx Reported Smoking Status: Never smoker Past Alcohol Use History: Rare Past Drug Use History: None Reported - Past Family History Mother Family Medical History: No Reported History Surgical - Exam Vital Signs Temp Pulse BP 98.3 F 99 127/85 02/23/22 14:18 02/23/22 14:18 02/23/22 14:18 - General well developed, well nourished, no distress - Abdomen Abdomen: soft, non tender Bariatric Assessment & Plan Plan: improving morbid obesity. Patient's GERD is minimal and will be observed. She'll follow-up in 4 weeks. Bariatric Checklist Checklist: Plan: Checklist: EGD: 1. Hiatal hernia: 2. H. Pylori: HgbA1c: Vitamin D: Smoking: Primary care physician referral: DR. PORTILLO Psychiatry clearance: Cardiology clearance: Sleep study: Diet journal: VTE risk score: VTE risk level: Rehab needs at discharge:
[2022-02-23 23:44] LABS: HCT 45.3 % (37.2-46.3); HGB 14.9 g/dL (12.0-15.0); MCH 29.3 pg (27.0-32.0); MCHC 32.9 g/dL (32.0-37.0); Mean Platelet Volume 11.3 fL (9.5-12.2); NRBC Per 100 WBC 0 /100 WBCS (0.0-0.0); Platelet Count 308 X 10*3/uL (140-440); RBC 5.09 X 10*6/uL (4.10-5.20); RDW 12.6 % (11.5-14.5); WBC 9.09 X 10*3/uL (4.50-10.00)
[2022-02-23 23:46] LABS: % Iron Saturation 16.79 (12.00-45.00); African American GFR (CKD) 138.7 (60.0-200.0); Albumin 4.7 g/dL (3.8-4.9); Albumin/Globulin Ratio 1.74 (1.60-3.17); Anion Gap 12.8 mmol/L (10.00-18.00); BUN/Creat Ratio 25.58 Ratio (12.00-20.00); Blood Urea Nitrogen 17.5 mg/dL (9.0-27.0); Calcium 10.1 mg/dL (8.7-10.3); Carbon Dioxide 26.9 mmol/L (20.0-27.5); Ferritin 46.4 ng/mL (10.0-291.0); Globulin 2.7 g/dL (1.6-3.3); Non-African American GFR(CKD) 119.7 (60.0-200.0); Potassium 4.4 mmol/L (3.5-5.5); Total Bilirubin 0.5 mg/dL (0.30-1.20); Total Protein 7.3 g/dL (6.2-8.2)
[2022-02-24 11:40] LABS: Zinc, Serum 78 ug/dL (60-130)
[2022-02-25 06:11] LABS: Vitamin A 52 ug/dL (38-106)
== END | disposition home or self-care (01) ==
LOC: BARWHC3 13:59
PROVIDERS: ATTEND Surgery
DX: E66.01 Morbid (severe) obesity due to excess calories (principal); D50.8 Other iron deficiency anemias; E55.9 Vitamin D deficiency, unspecified; T56.894A Toxic effect of other metals, undetermined, initial encounter; K90.9 Intestinal malabsorption, unspecified
CPT/HCPCS: 84255; 84425; 80053; 82607; 82728; 82746; 83540; 83550; 83735; 84443; 84590; 84630; 85027; 82306; G0463; 99211

== ENCOUNTER → 2022-04-13 | Outpatient (CLI) | payer OTHER ==
[2022-04-13 13:56] VITALS: BP 133/87; PULSE 85; TEMP 98.4; BMI 30.9
--- NOTE | 2022-04-13 14:24 | P.HPBAR ---
Bariatric H&P - History & Physicial H&P Date: 04/13/22 History & Physicial: Visit/CC: gastric sleeve F/U Patient initial contact: Initial weight: Initial weight in pounds: Height: 5 ft 2.5 in Initial BMI: Last weight: Current weight: 78.018 kg Current weight in pounds: 172.00 Current BMI: 30.9 [place] body weight (based on NIH guidelines): 51.029 kg Excess body weight loss: The patient is a 27 year-old F who presents for Bariatric Assessment. Patient presents today for bariatric follow-up. She's had some myoclonus of GERD. She's had excellent weight loss. Past Medical History Past Medical History: CVA/TIA, GERD/Reflux Additional Past Medical History / Comment(s): "Mini stroke at age 4 due to fever from kidney infection". Chronic migraines. Hx HPylori with Acid Relux, since resolved. History of Any Multi-Drug Resistant Organisms: MRSA Year Discovered:: 2018 MDRO Source:: BUTTOCKS Past Surgical History: Section Additional Past Surgical History / Comment(s): Section X1 (2014), I&D DUE TO MRSA - BUTTOCK AREA, EGD. Past Anesthesia/Blood Transfusion Reactions: No Reported Reaction Additional Past Anesthesia/Blood Transfusion Reaction / Comm: No blood transfusions. Past Psychological History: No Psychological Hx Reported Smoking Status: Never smoker Past Alcohol Use History: Rare Past Drug Use History: None Reported - Past Family History Mother Family Medical History: No Reported History Surgical - Exam Vital Signs Temp Pulse BP 98.4 F 85 133/87 04/13/22 13:54 04/13/22 13:54 04/13/22 13:54 - General well developed, well nourished, no distress - Eyes PERRL - ENT normal pinna - Neck no masses - Respiratory normal expansion - Cardiovascular Rhythm: regular - Abdomen Abdomen: soft, non tender Bariatric Assessment & Plan Plan: Patient's GERD is minimal and will be observed. She'll follow-up in 4 weeks. Bariatric Checklist Checklist: Plan: Checklist: EGD: 1. Hiatal hernia: 2. H. Pylori: HgbA1c: Vitamin D: Smoking: Primary care physician referral: DR. PORTILLO Psychiatry clearance: Cardiology clearance: Sleep study: Diet journal: VTE risk score: VTE risk level: Rehab needs at discharge:
== END ==
LOC: BARWHC3 13:46
PROVIDERS: ATTEND Surgery
DX: Z71.3 Dietary counseling and surveillance (principal); E66.01 Morbid (severe) obesity due to excess calories; Z68.31 Body mass index [BMI] 31.0-31.9, adult
CPT/HCPCS: 97803; G0463; 99211

== ENCOUNTER → 2022-06-10 | Outpatient (CLI) | payer MEDICAID, OTHER ==
--- NOTE | 2022-06-10 15:55 | XR ---
EXAMINATION TYPE: XR chest 2V DATE OF EXAM: 06/10/2022 3:42 PM COMPARISON: Chest radiographs from 03/20/2022 TECHNIQUE: XR chest 2V Frontal and lateral views of the chest. CLINICAL INDICATION:Female, 27 years old with history of R76.11NONSPECIFIC REACTION TO SKIN TEST W/O ACTIVE TUBERCULO; FINDINGS: Lungs/Pleura: There is no evidence of pleural effusion, focal consolidation, or pneumothorax. Pulmonary vascularity: Unremarkable. Heart/mediastinum: Cardiomediastinal silhouette is unremarkable. Musculoskeletal: No acute osseous pathology. IMPRESSION: No acute cardiopulmonary disease/process.
== END | disposition home or self-care (01) ==
LOC: RADXRWHC 15:24
PROVIDERS: ATTEND Student in an Organized Health Care Education/Training Program
DX: R76.11 Nonspecific reaction to tuberculin skin test without active tuberculosis (principal)
CPT/HCPCS: 71046

== ENCOUNTER → 2022-10-19 | Outpatient (CLI) | payer MEDICAID, OTHER ==
[2022-10-19 14:46] VITALS: BP 141/87; PULSE 76; TEMP 98.4; BMI 30.9
--- NOTE | 2022-10-20 08:48 | P.HPBAR ---
Bariatric H&P - History & Physicial H&P Date: 10/19/22 History & Physicial: Visit/CC: sleeve F/U Patient initial contact: Initial weight: Initial weight in pounds: Height: 5 ft 2.5 in Initial BMI: Last weight: Current weight: 78.018 kg Current weight in pounds: 172.00 Current BMI: 30.9 [place] body weight (based on NIH guidelines): 51.029 kg Excess body weight loss: The patient is a 27 year-old F who presents for Bariatric Assessment. Patient presents today for sleeve gastrectomy follow-up. She has had minimal GERD. Her weight loss has been stable. Past Medical History Past Medical History: CVA/TIA, GERD/Reflux Additional Past Medical History / Comment(s): "Mini stroke at age 4 due to fever from kidney infection". Chronic migraines. Hx HPylori with Acid Relux, since resolved. History of Any Multi-Drug Resistant Organisms: MRSA Year Discovered:: 2018 MDRO Source:: BUTTOCKS Past Surgical History: Bariatric Surgery, Section Additional Past Surgical History / Comment(s): Section X1 (2014), I&D DUE TO MRSA - BUTTOCK AREA, EGD. Gastric Sleeve 09/09/21. Past Anesthesia/Blood Transfusion Reactions: No Reported Reaction Additional Past Anesthesia/Blood Transfusion Reaction / Comm: No blood transfusions. Past Psychological History: No Psychological Hx Reported Smoking Status: Never smoker Past Alcohol Use History: Rare Past Drug Use History: None Reported - Past Family History Mother Family Medical History: No Reported History Surgical - Exam Vital Signs Temp Pulse BP 98.4 F 76 141/87 10/19/22 14:43 10/19/22 14:43 10/19/22 14:43 - General well developed, well nourished, no distress - Eyes PERRL - ENT normal pinna - Neck no masses - Respiratory normal expansion - Cardiovascular Rhythm: regular - Abdomen Abdomen: soft, non tender Bariatric Assessment & Plan Plan: Status post sleeve gastric. Patient's weight loss is at a standstill she will work on improving her dietary habits. Her GERD is minimal and will be observed. Bariatric Checklist Checklist: Plan: Checklist: EGD: 1. Hiatal hernia: 2. H. Pylori: HgbA1c: Vitamin D: Smoking: Primary care physician referral: DR. PORTILLO Psychiatry clearance: Cardiology clearance: Sleep study: Diet journal: VTE risk score: VTE risk level: Rehab needs at discharge:
== END ==
LOC: BARWHC3 14:36
PROVIDERS: ATTEND Surgery
DX: E66.01 Morbid (severe) obesity due to excess calories (principal); Z68.30 Body mass index [BMI] 30.0-30.9, adult; Z86.718 Personal history of other venous thrombosis and embolism; K21.9 Gastro-esophageal reflux disease without esophagitis; Z68.31 Body mass index [BMI] 31.0-31.9, adult
CPT/HCPCS: 99211

== ENCOUNTER → 2022-10-21 | Outpatient (CLI) | payer MEDICAID, OTHER ==
[2022-10-21 20:40] LABS: % Iron Saturation 40.11 (12.00-45.00); ALT 16 U/L (8-44); AST 19 U/L (13-35); Albumin 4.3 d/dL (3.8-4.9); Albumin/Globulin Ratio 1.59 Ratio (1.60-3.17); Alkaline Phosphatase 52 U/L (41-126); BUN/Creat Ratio 14.57 Ratio (12.00-20.00); Blood Urea Nitrogen 10.2 mg/dL (9.0-27.0); Calcium 9.9 mg/dL (8.7-10.3); Carbon Dioxide 24.9 mmol/L (21.6-31.8); Chloride 106 mmol/L (96-109); Globulin 2.7 d/dL (1.6-3.3); Glucose 81 mg/dL (70-110); Iron 140 UG/DL (50-170); Potassium 4.2 mmol/L (3.5-5.5); Sodium 141 mmol/L (135-145); Total Bilirubin 0.5 mg/dL (0.3-1.2); Total Iron Binding Capacity 349 UG/DL (228-460)
[2022-10-21 21:16] LABS: HCT 45.8 % (37.2-46.3); HGB 14.9 d/dL (12.0-15.0); MCH 29.3 pg (27.0-32.0); MCHC 32.5 d/dL (32.0-37.0); NRBC Per 100 WBC 0 X 10*3/uL (0.00-0.01); Platelet Count 284 X 10*3/uL (140-440); RBC 5.09 X 10*6/uL (4.10-5.20); RDW 12.6 % (11.5-14.5); WBC 8.53 X 10*3/uL (4.50-10.00)
[2022-10-21 23:59] LABS: Ferritin 50.8 ng/mL (10.0-291.0)
[2022-10-22 13:30] LABS: Zinc, Serum 82 ug/dL (60-130)
[2022-10-23 06:32] LABS: Vit B1(Thiamine) 68 ug/L (38-122)
[2022-10-23 08:05] LABS: Vitamin A 54 ug/dL (38-106)
== END | disposition home or self-care (01) ==
LOC: LABMAIN 13:06
PROVIDERS: ATTEND Surgery
DX: D50.8 Other iron deficiency anemias (principal); E55.9 Vitamin D deficiency, unspecified; T56.894A Toxic effect of other metals, undetermined, initial encounter; K90.9 Intestinal malabsorption, unspecified
CPT/HCPCS: 80053; 82306; 82607; 82728; 82746; 83540; 83550; 83735; 84255; 84425; 84443; 84590; 84630; 85027

== ENCOUNTER → 2023-08-09 | Outpatient (CLI) | payer MEDICAID ==
[2023-08-09 09:05] VITALS: BP 150/99; PULSE 88; RESP 13; TEMP 98.5
--- NOTE | 2023-08-09 09:37 | P.HPBAR ---
Bariatric H&P - History & Physicial H&P Date: 08/09/23 History & Physicial: Visit/CC: bariatric follow up Patient initial contact: Initial weight: Initial weight in pounds: Height: 5 ft 2.5 in Initial BMI: Last weight: Current weight: 85.049 kg Current weight in pounds: Current BMI: [place] body weight (based on NIH guidelines): Excess body weight loss: The patient is a 28 year-old F who presents for Bariatric Assessment. Patient resents today for sleeve gastrectomy follow-up. She's not been seen in 10 months. She is gained 15 pounds. Her current weight is 187 pounds. She's had some minimal GERD. Past Medical History Past Medical History: CVA/TIA, GERD/Reflux Additional Past Medical History / Comment(s): "Mini stroke at age 4 due to fever from kidney infection". Chronic migraines. Hx HPylori with Acid Relux, since resolved. History of Any Multi-Drug Resistant Organisms: MRSA Year Discovered:: 2018 MDRO Source:: BUTTOCKS Past Surgical History: Bariatric Surgery, Section Additional Past Surgical History / Comment(s): Section X1 (2014), I&D DUE TO MRSA - BUTTOCK AREA, EGD. Gastric Sleeve 09/09/21. Past Anesthesia/Blood Transfusion Reactions: No Reported Reaction Additional Past Anesthesia/Blood Transfusion Reaction / Comm: No blood transfusions. Past Psychological History: No Psychological Hx Reported Smoking Status: Never smoker Past Alcohol Use History: Rare Past Drug Use History: None Reported - Past Family History Mother Family Medical History: No Reported History Surgical - Exam Vital Signs Temp Pulse Resp BP 98.5 F 88 13 150/99 08/09/23 08:52 08/09/23 08:52 08/09/23 08:52 08/09/23 08:52 - General well developed, well nourished, no distress - Eyes PERRL - ENT normal pinna - Neck no masses - Respiratory normal expansion - Cardiovascular Rhythm: regular - Abdomen Abdomen: soft, non tender Bariatric Assessment & Plan Plan: Patient has had some weight gain. However her overall weight loss excellent. Her GERD is minimal will be observed. She'll follow-up in 8 weeks. Bariatric Checklist Checklist: Plan: Checklist: EGD: 1. Hiatal hernia: 2. H. Pylori: HgbA1c: Vitamin D: Smoking: Primary care physician referral: DR. PORTILLO Psychiatry clearance: Cardiology clearance: Sleep study: Diet journal: VTE risk score: VTE risk level: Rehab needs at discharge:
== END ==
LOC: BARWHC3 08:20
PROVIDERS: ATTEND Surgery
DX: K21.9 Gastro-esophageal reflux disease without esophagitis (principal); R63.4 Abnormal weight loss
CPT/HCPCS: 99211

== ENCOUNTER → 2024-04-22 | Outpatient (CLI) | payer MEDICAID ==
[2024-04-23 07:21] LABS: Basophils # (A) 0.05 X 10*3/uL (0.00-0.10); Basophils % (A) 0.5 %; Eosinophils # (A) 0.15 X 10*3/uL (0.04-0.35); Eosinophils % (A) 1.6 %; HCT 39.5 % (37.2-46.3); HGB 11.8 g/dL (12.0-15.0); Lymphocytes % (A) 28.7 %; MCH 24.5 pg (27.0-32.0); MCHC 29.9 g/dL (32.0-37.0); Mean Platelet Volume 12.4 FL (9.5-12.2); Monocytes # (A) 0.72 X 10*3/uL (0.20-1.00); Monocytes % (A) 7.7 %; NRBC Per 100 WBC 0 X 10*3/uL (0.00-0.01); Neutrophils # (A) 5.71 X 10*3/uL (1.80-7.70); Neutrophils % (A) 60.8 %; Platelet Count 347 X 10*3/uL (140-440); RBC 4.82 X 10*6/uL (4.10-5.20); RDW 14.2 % (11.5-14.5)
[2024-04-23 11:12] LABS: ALT 16 U/L (8-44); AST 20 U/L (13-35); Albumin 4.2 g/dL (3.8-4.9); Albumin/Globulin Ratio 1.56 Ratio (1.60-3.17); Alkaline Phosphatase 58 U/L (41-126); BUN/Creat Ratio 20.86 Ratio (12.00-20.00); Blood Urea Nitrogen 14.6 mg/dL (9.0-27.0); Calcium 9.5 mg/dL (8.7-10.3); Carbon Dioxide 22.1 mmol/L (21.6-31.8); Chloride 106 mmol/L (96-109); Chol/HDL Ratio 3.22 Ratio; Globulin 2.7 g/dL (1.6-3.3); Glucose 87 mg/dL (70-110); Iron 39 UG/DL (50-170); LDL Cholesterol,Calculated 149.5 mg/dL (0.0-131.0); Potassium 4.3 mmol/L (3.5-5.5); Sodium 141 mmol/L (135-145); Total Bilirubin 0.4 mg/dL (0.3-1.2); Total Iron Binding Capacity 470 UG/DL (228-460); Total Protein 6.9 g/dL (6.2-8.2)
== END | disposition home or self-care (01) ==
LOC: LABWHC1 09:48
PROVIDERS: ATTEND Nurse Practitioner Family
DX: Z00.00 Encounter for general adult medical examination without abnormal findings (principal); G43.E09 Chronic migraine with aura, not intractable, without status migrainosus; F41.9 Anxiety disorder, unspecified; R63.8 Other symptoms and signs concerning food and fluid intake; R20.2 Paresthesia of skin
CPT/HCPCS: 36415; 80053; 80061; 82306; 82607; 83036; 83540; 83550; 84443; 85025; 86038

== ENCOUNTER → 2024-07-10 | Outpatient (CLI) | payer MEDICAID ==
[2024-07-10 12:31] VITALS: BP 123/89; PULSE 80; RESP 16; TEMP 98.3; BMI 34.9
--- NOTE | 2024-07-10 15:08 | P.HPBAR ---
Bariatric H&P - History & Physicial H&P Date: 07/10/24 History & Physicial: Visit/CC: f/u mey Patient initial contact: Initial weight: Initial weight in pounds: Height: 5 ft 3 in Initial BMI: Last weight: Current weight: 89.358 kg Current weight in pounds: 197.00 Current BMI: 34.9 [place] body weight (based on NIH guidelines): 52.27 kg Excess body weight loss: The patient is a 29 year-old F who presents for Bariatric Assessment. Patient presents today for bariatric follow-up. Patient has lost in excess of 100 pounds. The patient is developed a well-formed panniculus. Patient is wished undergo panniculectomy. Patient has issues with chronic skin irritations. Patient's panniculus hangs below her pubic area. Past Medical History Past Medical History: CVA/TIA, GERD/Reflux Additional Past Medical History / Comment(s): "Mini stroke at age 4 due to fever from kidney infection". Chronic migraines. Hx HPylori with Acid Relux, since resolved. History of Any Multi-Drug Resistant Organisms: MRSA Year Discovered:: 2018 MDRO Source:: BUTTOCKS Past Surgical History: Bariatric Surgery, Section Additional Past Surgical History / Comment(s): Section X1 (2014), I&D DUE TO MRSA - BUTTOCK AREA, EGD. Gastric Sleeve 09/09/21. Past Anesthesia/Blood Transfusion Reactions: No Reported Reaction Additional Past Anesthesia/Blood Transfusion Reaction / Comm: No blood transfusions. Past Psychological History: No Psychological Hx Reported Smoking Status: Never smoker Past Alcohol Use History: Rare Past Drug Use History: None Reported - Past Family History Mother Family Medical History: No Reported History Surgical - Exam Vital Signs Temp Pulse Resp BP 98.3 F 80 16 123/89 07/10/24 12:05 07/10/24 12:05 07/10/24 12:05 07/10/24 12:05 - General well developed, well nourished, no distress - Eyes PERRL - ENT normal pinna, normal nares - Neck no masses - Respiratory normal expansion - Cardiovascular Rhythm: regular - Abdomen Well-formed panniculus. There is evidence of chronic skin irritations Abdomen: soft, non tender Bariatric Assessment & Plan Plan: Large panniculus. Patient be scheduled for panniculectomy once her insurance authorization requirements have been met. Patient is aware of the risk of surge including bleeding, seroma and infection. She is also aware that is not a cosmetic procedure however procedure remove redundant skin and fat. Bariatric Checklist Checklist: Plan: Checklist: EGD: 1. Hiatal hernia: 2. H. Pylori: HgbA1c: Vitamin D: Smoking: Primary care physician referral: [facility] Psychiatry clearance: Cardiology clearance: Sleep study: Diet journal: VTE risk score: VTE risk level: Rehab needs at discharge:
== END ==
LOC: BARWHC3 11:57
PROVIDERS: ATTEND Surgery
DX: M79.3 Panniculitis, unspecified (principal); Z68.34 Body mass index [BMI] 34.0-34.9, adult
CPT/HCPCS: 99211

== ENCOUNTER 2024-10-23 07:30 | Inpatient (IN) | payer MEDICAID ==
[2024-10-23] MEDS ORDERED: SCOPOLAMINE 1 MG/72 HR PATCH TRANSDERM ONE (07:42)
[2024-10-23] MEDS ORDERED: LIDOCAINE 1% (10MG/ML) FOR IV START INTRADERMA PRN (07:42)
[2024-10-23] MEDS: IV FLUID CONTINUATION 1,000 ML IV ONE (08:05)
[2024-10-23] MEDS: ONDANSETRON 4 MG/2 ML VIAL IVP ONE (08:36)
[2024-10-23] MEDS: LACTATED RINGERS 1,000 ML IV SCH (08:36)
[2024-10-23] MEDS: DEXAMETHASONE SOD PHOSPHATE 4 MG/ML 1 ML VIAL IV ONE (08:36)
[2024-10-23] MEDS: MIDAZOLAM 2 MG/2 ML VIAL IV ONE (08:38)
--- NOTE | 2024-10-23 08:51 | P.ANPRN ---
Procedure Note - Anesthesia - Nerve Block Performed Bilateral Erector Spinae Single Time Out Performed: Yes Date of Procedure: 10/23/24 Procedure Start Time: :38 Procedure Stop Time: :43 Location of Patient: PreOp Indication: Acute Post-Operative Pain, Analgesia, Requested by Surgeon Sedation Type: Sedate with meaningful contact maintained Preparation: Sterile Prep Position: Prone Catheter: None Needle Types: Pajunk Needle Gauge: 21 Ultrasound used to visualize needle placement: Yes Ultrasound used to observe medication spread: Yes Injectate: 0.5% Ropivacaine (see comment for volume) (Ropiv 20ml+Decadron 4mg, Needle level T10-- Each level) Blood Aspirated: No Pain Paresthesia on Injection Noted: No Resistance on Injection: Normal Image Stored and Saved: Yes Events: Uneventful and Well Tolerated
--- NOTE | 2024-10-23 09:01 | P.GSHP ---
History of Present Illness H&P Date: 10/23/24 Chief Complaint: Panniculus This is a 29-year-old female whose had previous gastric sleeve surgery. Patient has loss of excess [place] pounds. She has a well-formed panniculus. She has had issues with chronic skin irritations. The patient presents today for panniculectomy. Patient is aware that this is not a cosmetic procedure or procedure remove redundant skin and fat. Patient is aware the risk of possible cosmesis issues. Past Medical History Past Medical History: CVA/TIA, GERD/Reflux Additional Past Medical History / Comment(s): "Mini stroke at age 4 due to fever from kidney infection". Chronic migraines. Hx HPylori with Acid Relux, since resolved. History of Any Multi-Drug Resistant Organisms: MRSA Date of last positivie culture/infection: 2017 MDRO Source:: BUTTOCKS Past Surgical History: Bariatric Surgery, Section Additional Past Surgical History / Comment(s): Section X1 (2014), I&D DUE TO MRSA - BUTTOCK AREA, EGD. Gastric Sleeve 09/09/21. Past Anesthesia/Blood Transfusion Reactions: No Reported Reaction Additional Past Anesthesia/Blood Transfusion Reaction / Comment(s): No blood transfusions. Smoking Status: Never smoker - Past Family History Mother Family Medical History: No Reported History Medications and Allergies Home Medications Medication Instructions Recorded Confirmed Type SUMAtriptan succinate [Imitrex] 100 mg PO BID PRN #60 tab 09/10/21 10/23/24 Rx Multivitamins, Thera [Multivitamin 1 tab PO DAILY 02/23/22 10/23/24 History (formulary)] valACYclovir HCL [Valtrex] 500 mg PO DIRECTED 07/10/24 10/23/24 History Cholecalciferol (Vitamin D3) 1 cap PO DAILY 10/16/24 10/23/24 History [Vitamin D3 (125 MCG = 5,000 IU)] Cranberry Fruit Extract [Cranberry] 200 mg PO DAILY 10/16/24 10/23/24 History Iron (Unk) 1 tab PO DAILY 10/18/24 10/23/24 History Pre/Pro Biotic (Unk) 1 tab PO DAILY 10/18/24 10/23/24 History Ubrelvy (Unk) 1 tab PO DIRECTED PRN 10/18/24 10/23/24 History Vit B12 (Unk) 1 tab PO DAILY 10/18/24 10/23/24 History Allergies Allergy/AdvReac Type Severity Reaction Status Date / Time No Known Allergies Allergy Verified 10/23/24 08:17 Surgical - Exam Vital Signs Temp Pulse Resp BP Pulse Ox 98.3 F 86 16 122/95 97 10/23/24 08:05 10/23/24 08:05 10/23/24 08:05 10/23/24 08:05 10/23/24 08:05 - General well developed, well nourished, no distress - Eyes PERRL - ENT normal pinna - Neck no masses - Respiratory normal expansion - Cardiovascular Rhythm: regular - Abdomen Well-formed panniculus Abdomen: soft, non tender Assessment and Plan Assessment: Panniculus. Will perform panniculectomy.
[2024-10-23] MEDS: HEPARIN SODIUM,PORCINE 5,000 UNIT/ML 1 ML VIAL SQ STA (09:08)
[2024-10-23] MEDS ORDERED: ROCURONIUM 10 MG/ML (5 ML VIAL) IV ONE (09:15)
[2024-10-23] MEDS ORDERED: LIDOCAINE 1% INJ 10MG/ML (20 ML MDV) ONE (09:15)
[2024-10-23] MEDS ORDERED: DEXAMETHASONE SOD PHOSPHATE 4 MG/ML 1 ML VIAL ONE (09:15)
[2024-10-23] MEDS ORDERED: KETAMINE HCL IN 0.9 % NACL 50 MG/5 ML SYRINGE ONE (09:15)
[2024-10-23] MEDS ORDERED: MIDAZOLAM 2 MG/2 ML VIAL ONE (09:15)
[2024-10-23] MEDS ORDERED: NEOSTIGMINE 1 MG/ML 10 ML VIAL ONE (09:15)
[2024-10-23] MEDS ORDERED: ROPIVACAINE 5 MG/ML 30 ML VIAL ONE (09:15)
[2024-10-23] MEDS ORDERED: GLYCOPYRROLATE 0.2 MG/ML 2 ML VIAL ONE (09:15)
[2024-10-23] MEDS ORDERED: PROPOFOL 10 MG/ML 20 ML VIAL IV ONE (09:15)
[2024-10-23] MEDS ORDERED: fentaNYL (PF) 50 MCG/ML 2 ML AMP ONE (09:15)
[2024-10-23] MEDS ORDERED: SUCCINYLCHOLINE CHLORIDE 200 MG/10 ML VIAL IV ONE (09:15)
[2024-10-23] MEDS ORDERED: KETOROLAC 15 MG/ML 1 ML VIAL ONE (09:15)
[2024-10-23] MEDS ORDERED: HYDROmorphone (PF) 1 MG/ML ONE (09:15)
[2024-10-23] MEDS: ceFAZolin 2 GM in DEXTROSE 5% IN WATER 50 ML IVPB PRN (09:20)
[2024-10-23] MEDS: LACTATED RINGERS 1,000 ML IV ONE (11:19)
[2024-10-23] MEDS ORDERED: ONDANSETRON 4 MG/2 ML VIAL IVP PRN (12:06)
[2024-10-23] MEDS ORDERED: NALOXONE 0.4 MG/ML 1 ML VIAL IV PRN (12:06)
[2024-10-23] MEDS ORDERED: ACETAMINOPHEN TAB 325 MG TAB PO PRN (12:06)
--- NOTE | 2024-10-23 12:11 | P.OP ---
Date of Procedure: 10/23/24 Preoperative Diagnosis: Panniculus Postoperative Diagnosis: Panniculus Procedure(s) Performed: Panniculectomy Anesthesia: HAIDER Surgeon: Mateusz oBnner Estimated Blood Loss (ml): 25 Pathology: other (Panniculus) Condition: stable Disposition: PACU Operative Findings: 6.7 pound panniculus Description of Procedure: PROCEDURE: The patient was placed on the operating table in supine position and received general anesthetic. The abdomen was prepped and draped in the usual sterile fashion. The lower skin incision was then made after the skin was marked with a marker. The incision ran from the pubic area to the level of the anterosuperior iliac spine. Using blunt and sharp dissection and electrocautery the subcutaneous tissues were then dissected down to the level of the fascia external oblique. Next, a herberth shaped incision was made around the umbilicus and the umbilicus was then dissected down to the level of the fascia external oblique. Care was taken to ensure that the umbilical stalk was wide enough in order to maintain viability of the umbilicus. After the umbilicus was dissected a 0 Vicryl suture was used to orientate the umbilicus. The suture was placed at the 12 o'clock position of the umbilicus. Following this the dis section was then made from the inferior pannicular incision cephalad. The xiphoid and costal margins were the limits of the dissection. Several small perforating vessels were ligated and cautery was used to maintain hemostasis. Once the dissection was performed the panniculus was then divided in the midline from the level of the umbilicus towards the pubic area. Downward and lateral traction was then placed on the abdominal wall and the skin was suitably marked for transection of the umbilicus. The skin was then incised and the Bovie was used for dissection of the pannicular flap. Next, t 2 10-[place] BANDAR drains were placed in the wound and brought out through separate stab incisions at the level of the pubic area. The drains were secured to the skin using 3-0 nylon. After the BANDAR drains were secured, Troy's fascia was closed with interrupted 0 Vicryl sutures and then the skin was closed with running 3-0 Monocryl sutures. Prior to closure of the abdominal wall care was t aken to ensure that both the abdominal wall and the abdominal wall flap were hemostatic. Next, the umbilicus was reattached to the abdominal wall. A marking line was made across the top of the iliac crest and this line intercepted with the midline abdominal wall line that had been previously made in the preoperative hold area. A small semicircular U-shaped incision was created at the intersect ion of the two lines and the umbilicus was brought up through this incision. The umbilicus was then trimmed and secured to the skin using 3-0 Monocryl sutures. At this point the drains were placed to suction. The abdomen was cleaned and then sterile tape was placed over top of the incisions. Abdominal binder was then placed. The patient tolerated the procedure well. The patient was sent to recovery room in stable condition.
[2024-10-23] MEDS: HYDROmorphone 0.5 MG/0.5 ML SYRINGE IVP PRN (12:19)
[2024-10-23] MEDS ORDERED: SUMAtriptan succinate 50 MG TAB PO PRN (12:34)
[2024-10-23] MEDS: HYDROmorphone 1 MG/ML 1 ML SYRINGE IVP PRN (15:00)
--- NOTE | 2024-10-23 16:50 | CONS ---
CONSULTATION REASON FOR CONSULTATION: Regarding GERD, other medical issues requested by Surgery. HISTORY OF PRESENT ILLNESS: This is a 29-year-old woman with a past medical history of CVA, TIA, GERD, underwent panniculectomy by Dr. Bonner. There is no history of fever, rigors, or chills at this time. The patient complains of some pain, which is postoperative. PAST MEDICAL HISTORY: Reviewed include TIA and GERD. Rest of the chart is also reviewed. HOME MEDICATIONS: Reviewed include Valtrex, dose and rest of medications reviewed. ALLERGIES: None. FAMILY HISTORY: No history of heart disease or strokes in the family. SOCIAL HISTORY: No history of smoking or alcohol. REVIEW OF SYSTEMS: Fourteen-point review of systems negative except as mentioned earlier. PHYSICAL EXAMINATION: VITAL SIGNS: Pulse is 81, blood pressure 139/80, and respirations 16. CHEST: Clear to auscultation. CARDIOVASCULAR: S1, S2. ABDOMEN: Soft. Status post surgery. EXTREMITIES: Legs; no edema. NERVOUS SYSTEM: No focal deficits. LABORATORY DATA: Previous labs, WBC 15.36, otherwise chemistry is normal. ASSESSMENT: 1. Status post panniculectomy. 2. History of cerebrovascular accident and transient ischemic attack. 3. History of gastroesophageal reflux disease. 4. History of H pylori with acid reflux. 5. History of methicillin-resistant Staphylococcus aureus. RECOMMENDATIONS: This 29-year-old woman presented after surgery. At this time, I would recommend to continue the current medications and resume the home medications. DVT prophylaxis. The patient is medically stable at this time. Incentive spirometry. Continue to monitor. Further recommendations to follow. Recommend close followup with the primary physician after discharge. MMODL / IJN: [id number] /
[2024-10-23] MEDS: HYDROcodone/APAP 5-325MG 1 EACH TAB PO PRN (21:21)
[2024-10-24] MEDS: D5-0.45% NACL WITH KCL 20MEQ/L 1,000 ML IV SCH (00:39)
[2024-10-24] MEDS: HYDROmorphone 0.5 MG/0.5 ML SYRINGE IVP PRN (01:04)
[2024-10-24 08:02] LABS: Basophils # (A) 0.03 10*3/uL (0.00-0.10); Basophils % (A) 0.2 %; Eosinophils # (A) 0.05 10*3/uL (0.04-0.35); Eosinophils % (A) 0.3 %; HCT 33.4 % (37.2-46.3); HGB 11.1 g/dL (12.0-15.0); Lymphocytes # (A) 2.55 10*3/uL (0.90-5.00); Lymphocytes % (A) 16.4 %; MCH 27.7 pg (27.0-32.0); MCHC 33.2 g/dL (32.0-37.0); MCV 83.3 fL (80.0-97.0); Mean Platelet Volume 10.3 fL (9.5-12.2); Monocytes # (A) 0.94 10*3/uL (0.20-1.00); Neutrophils % (A) 76.6 %; Platelet Count 356 10*3/uL (140-440); RBC 4.01 10*6/uL (4.10-5.20); RDW 14.9 % (11.5-14.5); WBC 15.54 10*3/uL (4.50-10.00)
[2024-10-24 08:39] LABS: African American GFR (CKD) >90 (>60 ml/min/1.73 sqM); Anion Gap 4 mmol/L; Blood Urea Nitrogen 8 mg/dL (7-17); Calcium 9.1 mg/dL (8.4-10.2); Carbon Dioxide 26 mmol/L (22-30); Chloride 105 mmol/L (98-107); Glucose 108 mg/dL (74-99); Non-African American GFR(CKD) >90 (>60 ml/min/1.73 sqM); Potassium 4.1 mmol/L (3.5-5.1); Sodium 135 mmol/L (137-145)
[2024-10-24] MEDS ORDERED: IRON PO SCH (09:00)
[2024-10-24 09:01] VITALS: BP 100/69; PULSE 86; RESP 18; TEMP 97.6
[2024-10-24] MEDS: MULTIVITAMINS, THERA 1 EACH TAB PO SCH (09:14)
[2024-10-24] MEDS: ENOXAPARIN 40 MG/0.4 ML SYRINGE SQ SCH (09:14)
[2024-10-24] MEDS: CHOLECALCIFEROL 125 MCG (5000 IU) TABLET PO SCH (09:14)
--- NOTE | 2024-10-24 11:10 | P.DS ---
Providers Date of admission: 10/23/24 07:46 Expected date of discharge: 10/24/24 Attending physician: Mateusz Bonner Consults: 10/23/24 12:06 Consult Physician Routine Consulting Provider: Aviva Collado Consult Reason/Comments: med manage Do you want consulting provider notified?: Yes Primary care physician: Chey Gentile DO Hospital Course: Discharge diagnosis 1. Panniculus status post panniculectomy Hospital course This is a 29-year-old female who had a previous gastric sleeve surgery. She has a panniculus and is status post panniculectomy. Patient tolerated surgery well. Her pain is controlled. She is tolerating diet. She has been up and ambulating. She is having flatus. Denies any difficulty urinating. She is afebrile. She is stable for discharge. Please refer to chart for further details. Physician Blender / Cook note has been reviewed by physician. Signing provider agrees with the documented findings, assessment, and plan of care. Patient Condition at Discharge: Stable Plan - Discharge Summary Discharge Rx Participant: Yes New Discharge Prescriptions: New HYDROcodone/APAP 5-325MG [[place] 5-325] 1 tab PO Q6HR PRN 3 Days #12 tab PRN Reason: Pain Continue SUMAtriptan succinate [Imitrex] 100 mg PO BID PRN #60 tab PRN Reason: Headache valACYclovir HCL [Valtrex] 500 mg PO DIRECTED Cholecalciferol (Vitamin D3) [Vitamin D3 (125 MCG = 5,000 IU)] 1 cap PO DAILY Vit B12 (Unk) 1 tab PO DAILY Ubrelvy (Unk) 1 tab PO DIRECTED PRN PRN Reason: migraines Multivitamins, Thera [Multivitamin (formulary)] 1 tab PO DAILY Cranberry Fruit Extract [Cranberry] 200 mg PO DAILY Pre/Pro Biotic (Unk) 1 tab PO DAILY Iron (Unk) 1 tab PO DAILY Discharge Medication List SUMAtriptan succinate [Imitrex] 100 mg PO BID PRN #60 tab 09/10/21 [Rx] Multivitamins, Thera [Multivitamin (formulary)] 1 tab PO DAILY 02/23/22 [History] valACYclovir HCL [Valtrex] 500 mg PO DIRECTED 07/10/24 [History] Cholecalciferol (Vitamin D3) [Vitamin D3 (125 MCG = 5,000 IU)] 1 cap PO DAILY 10/16/24 [History] Cranberry Fruit Extract [Cranberry] 200 mg PO DAILY 10/16/24 [History] Iron (Unk) 1 tab PO DAILY 10/18/24 [History] Pre/Pro Biotic (Unk) 1 tab PO DAILY 10/18/24 [History] Ubrelvy (Unk) 1 tab PO DIRECTED PRN 10/18/24 [History] Vit B12 (Unk) 1 tab PO DAILY 10/18/24 [History] HYDROcodone/APAP 5-325MG [[place] 5-325] 1 tab PO Q6HR PRN 3 Days #12 tab 10/24/24 [Rx] Follow up Appointment(s)/Referral(s): Chey Gentile DO [Primary Care Provider] [facility] [place] [facility] - 1 Week Activity/Diet/Wound Care/Special Instructions: No driving while taking [place] No lifting over 10 pounds Shower daily. No soaking or tub baths for 2 weeks Very light activity until you are reevaluated at your follow up appointment with your surgeon Keep a log of BANDAR drain output and bring with you to your follow-up appointment Milk/strip drains every couple of hours Discharge Disposition: HOME SELF-CARE
--- NOTE | 2024-10-24 14:02 | PN ---
PROGRESS NOTE DATE OF SERVICE: 10/24/2024 SUBJECTIVE: This is a 29-year-old woman was admitted after panniculectomy, is improving significantly. No chest pain. No palpitation. OBJECTIVE: VITAL SIGNS: Pulse is 86, blood pressure 100/60, respirations 18. CHEST: Clear to auscultation. CARDIOVASCULAR: S1, S2. ABDOMEN: Soft. Status post lap. LABORATORY DATA: WBC 15.54. ASSESSMENT: 1. Status post panniculectomy. 2. Increased WBC, possibly reactive rather chronic. 3. History of cerebrovascular accident and transient ischemic attack. 4. History of gastroesophageal reflux disease. 5. History of H pylori with acid reflux. 6. History of methicillin-resistant Staphylococcus aureus. RECOMMENDATION AND DISCUSSION: This 29-year-old woman presented after surgery. At this time, I recommend to continue the current medications. The patient had elevated WBC, which is also present preop also. I would recommend repeat labs in the outpatient setting and if there is a persistent elevation, possibly Hematology/Oncology evaluation as an outpatient. Otherwise, we will follow the patient closely with you. MMODL / IJN: [id number] /
== END 2024-10-24 14:20 | disposition home or self-care (01) | DRG 624 ==
LOC: 2ORMAIN 07:46 → EDSTATUS 09:10 → 4SSUR 12:13
PROVIDERS: ADMIT Surgery; ATTEND Surgery
PROC: 0JB80ZZ Excision of Abdomen Subcutaneous Tissue and Fascia, Open Approach (ICD-10-PCS; principal; 2024-10-23 09:10)
DX: E65 Localized adiposity (principal); D72.829 Elevated white blood cell count, unspecified; G43.909 Migraine, unspecified, not intractable, without status migrainosus; K21.9 Gastro-esophageal reflux disease without esophagitis; R21 Rash and other nonspecific skin eruption; Z79.899 Other long term (current) drug therapy; Z86.73 Personal history of transient ischemic attack (TIA), and cerebral infarction without residual deficits; Z86.14 Personal history of Methicillin resistant Staphylococcus aureus infection; Z98.84 Bariatric surgery status; Z86.19 Personal history of other infectious and parasitic diseases
CPT/HCPCS: 64468; 80048; 81025; 85025

== ENCOUNTER → 2024-10-27 | Outpatient (CLI) | payer MEDICAID ==
[2024-10-27 15:25] LABS: BUN/Creat Ratio 12.75 Ratio (12.00-20.00); Blood Urea Nitrogen 10.2 mg/dL (9.0-27.0); Chloride 102 mmol/L (96-109); Glucose 84 mg/dL (70-110); Potassium 4.3 mmol/L (3.5-5.5); Sodium 139 mmol/L (135-145)
[2024-10-27 15:26] LABS: Calcium 9.4 mg/dL (8.7-10.3); Carbon Dioxide 22.4 mmol/L (21.6-31.8); Magnesium 1.8 mg/dL (1.5-2.4)
[2024-10-27 18:59] LABS: Basophils # (A) 0.04 X 10*3/uL (0.00-0.10); Basophils % (A) 0.4 %; Eosinophils # (A) 0.22 X 10*3/uL (0.04-0.35); Eosinophils % (A) 2.3 %; HCT 40.7 % (37.2-46.3); HGB 12.6 g/dL (12.0-15.0); Lymphocytes # (A) 2.63 X 10*3/uL (0.90-5.00); Lymphocytes % (A) 27.6 %; MCH 26.3 pg (27.0-32.0); MCV 84.8 FL (80.0-97.0); Mean Platelet Volume 11.1 FL (9.5-12.2); Monocytes # (A) 0.77 X 10*3/uL (0.20-1.00); Monocytes % (A) 8.1 %; NRBC Per 100 WBC 0 X 10*3/uL (0.00-0.01); Neutrophils # (A) 5.85 X 10*3/uL (1.80-7.70); Neutrophils % (A) 61.4 %; Platelet Count 400 X 10*3/uL (140-440); RDW 15.1 % (11.5-14.5); WBC 9.53 X 10*3/uL (4.50-10.00)
== END | disposition home or self-care (01) ==
LOC: LABWHC1 10:56
PROVIDERS: ATTEND Surgery
DX: M79.3 Panniculitis, unspecified (principal); L98.7 Excessive and redundant skin and subcutaneous tissue
CPT/HCPCS: 36415; 80048; 83735; 85025

== ENCOUNTER → 2024-10-27 | Outpatient (CLI) | payer MEDICAID ==
[2024-10-27 11:14] VITALS: BP 136/96; PULSE 92; RESP 16; TEMP 99; BMI 33.4
== END ==
LOC: BARWHC3 10:25
PROVIDERS: ATTEND Surgery
DX: E66.01 Morbid (severe) obesity due to excess calories (principal); Z53.9 Procedure and treatment not carried out, unspecified reason
CPT/HCPCS: 99212

== ENCOUNTER → 2024-10-30 | Outpatient (CLI) | payer MEDICAID ==
[2024-10-30 09:53] VITALS: BP 126/92; PULSE 85; RESP 16; TEMP 98.1; BMI 33.1
--- NOTE | 2024-11-09 14:02 | P.HPBAR ---
Bariatric H&P - History & Physicial H&P Date: 10/30/24 History & Physicial: Visit/CC: f/u mey Patient initial contact: Initial weight: Initial weight in pounds: Height: 5 ft 2.5 in Initial BMI: Last weight: Current weight: 83.461 kg Current weight in pounds: 184.00 Current BMI: 33.1 [place] body weight (based on NIH guidelines): 51.13 kg Excess body weight loss: The patient is a 29 year-old F who presents for Bariatric Assessment. patient presents for follow-up. She underwent recent panniculectomy. She has minimal complaints of pain. Her incision is healing. Past Medical History Past Medical History: CVA/TIA, GERD/Reflux Additional Past Medical History / Comment(s): "Mini stroke at age 4 due to fever from kidney infection". Chronic migraines. Hx HPylori with Acid Relux, since resolved. History of Any Multi-Drug Resistant Organisms: MRSA Year Discovered:: 2018 MDRO Source:: BUTTOCKS Past Surgical History: Bariatric Surgery, Section Additional Past Surgical History / Comment(s): Section X1 (2014), I&D DUE TO MRSA - BUTTOCK AREA, EGD. Gastric Sleeve 09/09/21. Panniculectomy 10-23-24 Past Anesthesia/Blood Transfusion Reactions: No Reported Reaction Additional Past Anesthesia/Blood Transfusion Reaction / Comm: No blood transfusions. Past Psychological History: No Psychological Hx Reported Smoking Status: Never smoker Past Alcohol Use History: Rare Past Drug Use History: None Reported - Past Family History Mother Family Medical History: No Reported History Surgical - Exam Vital Signs Temp Pulse Resp BP 98.1 F 85 16 126/92 10/30/24 09:28 10/30/24 09:28 10/30/24 09:28 10/30/24 09:28 - General well developed, well nourished, no distress - Eyes PERRL - ENT normal pinna, normal nares - Neck no masses - Respiratory normal expansion - Abdomen the incision is healing Abdomen: soft, non tender Bariatric Assessment & Plan Plan: status post panniculectomy. Patient is doing well. She will follow-up in 1 week. Bariatric Checklist Checklist: Plan: Checklist: EGD: 1. Hiatal hernia: 2. H. Pylori: HgbA1c: Vitamin D: Smoking: Primary care physician referral: [facility] Psychiatry clearance: Cardiology clearance: Sleep study: Diet journal: VTE risk score: VTE risk level: Rehab needs at discharge:
== END ==
LOC: BARWHC3 09:24
PROVIDERS: ATTEND Surgery
DX: E66.01 Morbid (severe) obesity due to excess calories (principal); Z68.33 Body mass index [BMI] 33.0-33.9, adult
CPT/HCPCS: 99212

== ENCOUNTER → 2024-11-06 | Outpatient (CLI) | payer MEDICAID ==
[2024-11-06 10:00] VITALS: BP 117/77; PULSE 90; RESP 16; TEMP 98.7; BMI 33.4
== END ==
LOC: BARWHC3 08:59
PROVIDERS: ATTEND Surgery
DX: Z53.9 Procedure and treatment not carried out, unspecified reason (principal)
CPT/HCPCS: 99212

== ENCOUNTER → 2024-11-10 | Outpatient (CLI) | payer MEDICAID ==
[2024-11-10 10:47] VITALS: BP 110/84; PULSE 104; RESP 16; TEMP 98.4; BMI 33.5
== END ==
LOC: BARWHC3 10:34
PROVIDERS: ATTEND Surgery
DX: E66.01 Morbid (severe) obesity due to excess calories (principal); Z68.33 Body mass index [BMI] 33.0-33.9, adult
CPT/HCPCS: 99211

== ENCOUNTER → 2024-11-14 | Outpatient (CLI) | payer MEDICAID ==
[2024-11-14 13:20] VITALS: BP 112/75; PULSE 102; TEMP 98.2; BMI 33.6
== END ==
LOC: BARWHC3 08:59
PROVIDERS: ATTEND Surgery
DX: Z09 Encounter for follow-up examination after completed treatment for conditions other than malignant neoplasm (principal); Z98.84 Bariatric surgery status; E66.01 Morbid (severe) obesity due to excess calories
CPT/HCPCS: 99212

== ENCOUNTER → 2024-11-20 | Outpatient (CLI) | payer MEDICAID ==
[2024-11-20 14:47] VITALS: BP 125/85; PULSE 111; TEMP 98.2; BMI 33.3
--- NOTE | 2024-11-23 16:02 | P.HPBAR ---
Bariatric H&P - History & Physicial H&P Date: 11/20/24 History & Physicial: Visit/CC: panni follow up Patient initial contact: Initial weight: Initial weight in pounds: Height: 5 ft 2.5 in Initial BMI: Last weight: Current weight: 83.915 kg Current weight in pounds: 185.00 Current BMI: 33.3 [place] body weight (based on NIH guidelines): 51.25 kg Excess body weight loss: The patient is a 29 year-old F who presents for Bariatric Assessment. patient presents today for follow-up. Her panniculectomy skin incision is healing. Her BANDAR drain still producing excess of 30 cc/day. Past Medical History Past Medical History: CVA/TIA, GERD/Reflux Additional Past Medical History / Comment(s): "Mini stroke at age 4 due to fever from kidney infection". Chronic migraines. Hx HPylori with Acid Relux, since resolved. History of Any Multi-Drug Resistant Organisms: MRSA Year Discovered:: 2018 MDRO Source:: BUTTOCKS Past Surgical History: Bariatric Surgery, Section Additional Past Surgical History / Comment(s): Section X1 (2014), I&D DUE TO MRSA - BUTTOCK AREA, EGD. Gastric Sleeve 09/09/21. Panniculectomy 10-23-24 Past Anesthesia/Blood Transfusion Reactions: No Reported Reaction Additional Past Anesthesia/Blood Transfusion Reaction / Comm: No blood transfusions. Past Psychological History: No Psychological Hx Reported Smoking Status: Never smoker Past Alcohol Use History: Rare Past Drug Use History: None Reported - Past Family History Mother Family Medical History: No Reported History Surgical - Exam Vital Signs Temp Pulse BP 98.2 F 111 H 125/85 11/20/24 14:35 11/20/24 14:35 11/20/24 14:35 - General well developed, well nourished, no distress - Eyes PERRL - ENT normal pinna - Neck no masses - Respiratory normal expansion - Cardiovascular Rhythm: regular - Abdomen Abdomen: soft, non tender Bariatric Assessment & Plan Plan: Status post panniculectomy. Patient's wound is healing. She will follow-up in 1 week. Bariatric Checklist Checklist: Plan: Checklist: EGD: 1. Hiatal hernia: 2. H. Pylori: HgbA1c: Vitamin D: Smoking: Primary care physician referral: [facility] Psychiatry clearance: Cardiology clearance: Sleep study: Diet journal: VTE risk score: VTE risk level: Rehab needs at discharge:
== END ==
LOC: BARWHC3 09:35
PROVIDERS: ATTEND Surgery
DX: E66.01 Morbid (severe) obesity due to excess calories (principal); Z68.33 Body mass index [BMI] 33.0-33.9, adult
CPT/HCPCS: 99212

== ENCOUNTER → 2024-11-27 | Outpatient (CLI) | payer MEDICAID ==
[2024-11-27 13:35] VITALS: BP 124/87; PULSE 108; RESP 16; TEMP 98; BMI 33.1
--- NOTE | 2024-11-28 13:26 | P.HPBAR ---
Bariatric H&P - History & Physicial H&P Date: 11/27/24 History & Physicial: Visit/CC: f/u mey Patient initial contact: Initial weight: Initial weight in pounds: Height: 5 ft 2.5 in Initial BMI: Last weight: Current weight: 83.461 kg Current weight in pounds: 184.00 Current BMI: 33.1 [place] body weight (based on NIH guidelines): 51.25 kg Excess body weight loss: The patient is a 29 year-old F who presents for Bariatric Assessment. Patient presents today for bariatric follow-up. Her panniculectomy drain is still draining. The fluid is changed from a clear yellow to a turbid yellow. Past Medical History Past Medical History: CVA/TIA, GERD/Reflux Additional Past Medical History / Comment(s): "Mini stroke at age 4 due to fever from kidney infection". Chronic migraines. Hx HPylori with Acid Relux, since resolved. History of Any Multi-Drug Resistant Organisms: MRSA Year Discovered:: 2018 MDRO Source:: BUTTOCKS Past Surgical History: Bariatric Surgery, Section Additional Past Surgical History / Comment(s): Section X1 (2014), I&D DUE TO MRSA - BUTTOCK AREA, EGD. Gastric Sleeve 09/09/21. Panniculectomy 10-23-24 Past Anesthesia/Blood Transfusion Reactions: No Reported Reaction Additional Past Anesthesia/Blood Transfusion Reaction / Comm: No blood transfusions. Past Psychological History: No Psychological Hx Reported Smoking Status: Never smoker Past Alcohol Use History: Rare Past Drug Use History: None Reported - Past Family History Mother Family Medical History: No Reported History Surgical - Exam Vital Signs Temp Pulse Resp BP 98.0 F 108 H 16 124/87 11/27/24 12:51 11/27/24 12:51 11/27/24 12:51 11/27/24 12:51 - General well developed, well nourished, no distress - Eyes PERRL - ENT normal pinna - Cardiovascular Rhythm: regular - Abdomen Incision site is healing. The area that had some induration last week has improved significantly. BANDAR drain still draining in excess of 50 cc/day. Abdomen: soft, non tender Bariatric Assessment & Plan Plan: Status post panniculectomy. Patient will follow-up in 1 week. She was given a prescription for Levaquin 500 milligrams p.o. daily. Bariatric Checklist Checklist: Plan: Checklist: EGD: 1. Hiatal hernia: 2. H. Pylori: HgbA1c: Vitamin D: Smoking: Primary care physician referral: [facility] Psychiatry clearance: Cardiology clearance: Sleep study: Diet journal: VTE risk score: VTE risk level: Rehab needs at discharge:
== END ==
LOC: BARWHC3 12:35
PROVIDERS: ATTEND Surgery
DX: E66.01 Morbid (severe) obesity due to excess calories (principal); Z68.33 Body mass index [BMI] 33.0-33.9, adult
CPT/HCPCS: 99212

== ENCOUNTER → 2024-12-04 | Outpatient (CLI) | payer MEDICAID ==
--- NOTE | 2024-12-04 10:19 | P.HPBAR ---
Bariatric H&P - History & Physicial H&P Date: 12/04/24 History & Physicial: Visit/CC: Patient initial contact: Initial weight: Initial weight in pounds: Height: 5 ft 2.5 in Initial BMI: Last weight: Current weight: 82.554 kg Current weight in pounds: Current BMI: [place] body weight (based on NIH guidelines): Excess body weight loss: The patient is a 29 year-old F who presents for Bariatric Assessment. Patient was seen for cough. She has had almost no output through her remaining right sided BANDAR drain. She has had some output through her incision. Past Medical History Past Medical History: CVA/TIA, GERD/Reflux Additional Past Medical History / Comment(s): "Mini stroke at age 4 due to fever from kidney infection". Chronic migraines. Hx HPylori with Acid Relux, since resolved. History of Any Multi-Drug Resistant Organisms: MRSA Year Discovered:: 2018 MDRO Source:: BUTTOCKS Past Surgical History: Bariatric Surgery, Section Additional Past Surgical History / Comment(s): Section X1 (2014), I&D DUE TO MRSA - BUTTOCK AREA, EGD. Gastric Sleeve 09/09/21. Panniculectomy 10-23-24 Past Anesthesia/Blood Transfusion Reactions: No Reported Reaction Additional Past Anesthesia/Blood Transfusion Reaction / Comm: No blood transfusions. Past Psychological History: No Psychological Hx Reported Smoking Status: Never smoker Past Alcohol Use History: Rare Past Drug Use History: None Reported - Past Family History Mother Family Medical History: No Reported History Surgical - Exam - Abdomen Abdomen is soft. Incision is well-healed. There is no sign infection. There is no induration inflammation. There is no purulent output. Bariatric Assessment & Plan Plan: The BANDAR drain was removed. She will follow-up in 1 week for recheck. Bariatric Checklist Checklist: Plan: Checklist: EGD: 1. Hiatal hernia: 2. H. Pylori: HgbA1c: Vitamin D: Smoking: Primary care physician referral: [facility] Psychiatry clearance: Cardiology clearance: Sleep study: Diet journal: VTE risk score: VTE risk level: Rehab needs at discharge:
[2024-12-04 10:36] VITALS: BP 129/88; PULSE 91; RESP 16; TEMP 98.6; BMI 32.7
== END ==
LOC: BARWHC3 09:36
PROVIDERS: ATTEND Surgery
DX: E66.01 Morbid (severe) obesity due to excess calories (principal); Z68.32 Body mass index [BMI] 32.0-32.9, adult
CPT/HCPCS: 99212

== ENCOUNTER → 2024-12-11 | Outpatient (CLI) | payer MEDICAID ==
[2024-12-11 11:08] VITALS: BP 128/87; PULSE 93; RESP 16; TEMP 98.6; BMI 32.7
--- NOTE | 2024-12-11 14:12 | P.HPBAR ---
Bariatric H&P - History & Physicial H&P Date: 12/11/24 History & Physicial: Visit/CC: f/u mey Patient initial contact: Initial weight: Initial weight in pounds: Height: 5 ft 2.5 in Initial BMI: Last weight: Current weight: 82.554 kg Current weight in pounds: 182.00 Current BMI: 32.7 [place] body weight (based on NIH guidelines): 51.25 kg Excess body weight loss: The patient is a 29 year-old F who presents for Bariatric Assessment. Patient presents today for follow-up. Her panniculectomy wound is healing. She has had no significant drainage. Past Medical History Past Medical History: CVA/TIA, GERD/Reflux Additional Past Medical History / Comment(s): "Mini stroke at age 4 due to fever from kidney infection". Chronic migraines. Hx HPylori with Acid Relux, since resolved. History of Any Multi-Drug Resistant Organisms: MRSA Year Discovered:: 2018 MDRO Source:: BUTTOCKS Past Surgical History: Bariatric Surgery, Section Additional Past Surgical History / Comment(s): Section X1 (2014), I&D DUE TO MRSA - BUTTOCK AREA, EGD. Gastric Sleeve 09/09/21. Panniculectomy 10-23-24 Past Anesthesia/Blood Transfusion Reactions: No Reported Reaction Additional Past Anesthesia/Blood Transfusion Reaction / Comm: No blood tra nsfusions. Past Psychological History: No Psychological Hx Reported Smoking Status: Never smoker Past Alcohol Use History: Rare Past Drug Use History: None Reported - Past Family History Mother Family Medical History: No Reported History Surgical - Exam Vital Signs Temp Pulse Resp BP 98.6 F 93 16 128/87 12/11/24 10:51 12/11/24 10:51 12/11/24 10:51 12/11/24 10:51 - Abdomen Abdomen is soft. Incision is well-healed. There is no cellulitis or redness. There is no drainage. Bariatric Assessment & Plan Plan: Healing panniculectomy. Patient will follow-up in 2 weeks. Bariatric Checklist Checklist: Plan: Checklist: EGD: 1. Hiatal hernia: 2. H. Pylori: HgbA1c: Vitamin D: Smoking: Primary care physician referral: [facility] Psychiatry clearance: Cardiology clearance: Sleep study: Diet journal: VTE risk score: VTE risk level: Rehab needs at discharge:
== END | disposition home or self-care (01) ==
LOC: BARWHC3 10:38
PROVIDERS: ATTEND Surgery
DX: E66.01 Morbid (severe) obesity due to excess calories (principal); Z68.32 Body mass index [BMI] 32.0-32.9, adult
CPT/HCPCS: 99212